=== PATIENT | female | born 1975 | race Caucasian/White ===

== ENCOUNTER 2022-04-27 20:17 | Emergency (ER) | payer OTHER, SELFPAY ==
[2022-04-27 20:22] VITALS: BP 162/75; PULSE 70; RESP 16; TEMP 36.1; O2SAT 99; BMI 21.9
--- NOTE | 2022-04-27 20:47 | CRLHL7_ITS ---
For Patients: As a result of the Cures Act, medical imaging exams and procedure reports are released immediately into your electronic medical record. You may view this report before your referring provider. If you have questions, please contact your health care provider. INDICATION: Injury. COMPARISON: None. TECHNIQUE: Left great toe 3 views. IMPRESSION: No acute fracture. Alignment is within normal limits. Joint spaces are maintained. Mild soft tissue swelling. Dictated by Francois Read MD @ 04/27/2022 9:31:21 PM (Electronically Signed)
--- NOTE | 2022-04-27 20:56 | ED.LOWEXIN ---
HPI - Extremity Injury (Lower) General Chief Complaint: Extremity Pain/Injury, Lower Stated Complaint: LEFT BIG TOE INJURY Time Seen by Provider: 04/27/22 20:25 History of Present Illness HPI Narrative: This 46-year-old female comes in with an injury to her left great toe. About 10 hours prior to arrival and ease all fell on her toe. She has swelling and bruising. She did not have any other injury. She is otherwise in good health. Related Data Home Medications Medication Instructions Recorded Confirmed No Known Home Medications 04/27/22 04/27/22 Allergies Allergy/AdvReac Type Severity Reaction Status Date / Time tree pollen Allergy Mild itchy eyes Uncoded 04/27/22 20:29 Review of Systems Status of ROS: Reports: 10 or more systems reviewed and unremarkable except as noted in History and below Narrative: Constitutional: No fevers, no weight gain or loss. Eyes: No discharge. No vision changes. HENT: No congestion, no sore throat, no ear pain. Cardiovascular: No chest pain, no palpitations. Respiratory: No shortness of breath, no wheezes, no cough. Gastrointestinal: No abdominal pain, no vomiting, no diarrhea. Genitourinary: No dysuria, no hematuria. Musculoskeletal: Left great toe injury as described above. Skin: No rashes, no pruritis. Neurological: No dizziness, weakness, sensory change, speech change. Endo/Heme/Allergies: No bruising or bleeding. No polydipsia. Pysch: no suicidality, no anxiety, no insomnia. All other systems reviewed and are negative. [facility] Medical History (Updated 04/27/22 @ 21:29 by Alex Marie MD) Inguinal hernia Social History Smoking Status: Never smoker Do you use any of these nicotine containing products: None Second hand tobacco smoke exposure: No How often do you have a drink containing alcohol: monthly or less How often do you have six or more drinks on one occasion: Never AUDIT-C Alcohol total score: 1 Non-prescribed substance use: denies use service: No Exam Narrative: Exam Narrative: Constitutional: Well-developed, well-nourished, no acute distress. HEENT: Normocephalic, atraumatic. Neck: Normal range of motion. Nontender. Supple. Heart: Intact distal pulses. Lungs: No chest discomfort. No wheezes, rhonchi, or rales. Abdomen: Nontender. Back: Normal range of motion. Extremities: Left great toe has bruising and swelling. There is no obvious deformity. Skin: Intact. No rash. Warm. No erythema or pallor. Neurologic: No altered sensation. No weakness. Alert and oriented. Psychiatric: No suicidality. No anxiety or depression. No insomnia. Nursing notes and vitals signs are reviewed. Const: Vital Signs, click to edit/add: Vital Signs - 24 hr 04/27/22 20:22 Temperature 96.9 F L Pulse Rate [Right Pulse Oximeter] 70 Respiratory Rate 16 Blood Pressure [Ri ght Upper Arm] 162/75 H Pulse Oximetry 99 Oxygen Delivery Me thod Room Air Course Vital Signs Vital signs: Initial Vital Signs Temperature 96.9 F L 04/27/22 20:22 Temperature Source Temporal Artery Scan 04/27/22 20:22 Pulse Rate 70 04/27/22 20:22 Respiratory Rate 16 04/27/22 20:22 Blood Pressure 162/75 H 04/27/22 20:22 Blood Pressure Mean 104 04/27/22 20:22 Blood Pressure Position Sitting 04/27/22 20:22 Pulse Oximetry 99 04/27/22 20:22 Oxygen Delivery Method 04/27/22 20:22 Vital Signs Temperature 96.9 F L 04/27/22 20:22 Pulse Rate 70 04/27/22 20:22 Respiratory Rate 16 04/27/22 20:22 Blood Pressure 162/75 H 04/27/22 20:22 Pulse Oximetry 99 04/27/22 20:22 Oxygen Delivery Method 04/27/22 20:22 Temperature 96.9 F L 04/27/22 20:22 Pulse Rate 70 04/27/22 20:22 Respiratory Rate 16 04/27/22 20:22 Blood Pressure 162/75 H 04/27/22 20:22 Pulse Oximetry 99 04/27/22 20:22 Oxygen Delivery Method 04/27/22 20:22 MDM - Extremity Injury (Lower) MDM Narrative Medical decision making narrative: This patient comes in with a contusion to her left great toe. She is ambulatory and did not have any other injury. X-ray imaging by my review shows no obvious dislocation or fracture. The patient is okay to increase activity as tolerated. She states that she will use [id number]-bqr-sxqhisg medicines as needed and directed for pain relief. Imaging Data XR L Great Toe: My impression: No obvious sign of fracture or dislocation by my review. Radiology report is pending. Discharge Plan Discharge Clinical Impression: Contusion of toe of left foot Patient Disposition: Home, Self-Care Condition: Stable Additional Instructions: Increase activity as tolerated. Use [id number]-[id number] medicines as needed and directed. Follow up with MD otherwise as needed. Prescriptions: No Action No Known Home Medications Follow Up/Referrals: Provider,Not a Local [Primary Care Provider] - Stand Alone Forms: [employer] Info Instructions
--- OUTSIDE RECORDS SUMMARY | 2022-04-27 21:10 | XMS_ITS | Clinical Summary ---
:1975 Author Organization [facility] Address [address] [place] [address] Care Team Providers Name Role Phone Unassigned, Provider Primary Care Provider Unavailable Source Comments You are receiving this document as you are listed as the primary care provider,follow-up provider, or the patient has been referred to you for consultation.This is in compliance with the Medicare and Medicaid EHR Incentive Program,which states Providers who transition their patient to another setting of careor provider of care or refers their patient to another provider of care shouldprovide summarycare record for each transition of care or referral. [facility] Allergies No known active allergies Medications Medication Sig Dispensed Refills Start Date End Date Status lisinopril (AKA Take one tablet by 0 Active ZESTRIL) 10 MG tablet mouth every day. mefloquine (LARIAM) Take 1 tab weekly 8 Tab 0 02/02/2017 Active 250 MG starting 2 wks tabletIndications: before malarial Counseling for travel mosquito exposure, wkly while there, and continue for 4 weeks after azithromycin Take 1 tab daily 3 Tab 0 01/31/2017 Active (ZITHROMAX) 500 MG for 3 days as tabletIndications: needed for severe Counseling for travel travelers diarrhea. Active Problems Problem Noted Date Plantar warts 02/25/2012 Immunizations Name Administration Dates Next Due [id number] 07/28/2009 HepA Adult (19+ yrs) 01/09/2016, 07/04/2015 IPV (Polio) 07/05/2016 Influenza IIV4 (Quadrivalent) 0.5mL 04/30/2016, 05/15/2014 (62619) Influenza, Unspecified Formulation 07/04/2015, 05/09/2014, 1 MMR 02/07/1992 Tdap 09/17/2011 Typhoid (Typhim Vi, IM) 01/31/2017 YF (Yellow Fever) 01/31/2017 Family History Medical History Relation Name Comments Glaucoma Negative Family History Macular Degeneration Negative Family History Retinal Detachment Negative Family History Social History Tobacco Use Types Packs/Day Years Used Date Smoking Tobacco: Never Smokeless Tobacco: Never Sex Assigned at Date Recorded Not on file Last Filed Vital Signs Vital Sign Reading Time Taken Comments Blood Pressure 110/76 06/16/2012 1:25 PM PETROPHYSICAL ENGINEER Pulse 48 06/16/2012 1:25 PM PETROPHYSICAL ENGINEER Temperature 36.8 ??C (98.2 ??F) 12/22/2011 8:02 AM CDT Respiratory Rate 16 05/05/2012 11:14 AM CDT Oxygen Saturation - - Inhaled Oxygen Concentration - - Weight 63.6 kg (140 lb 3.2 oz) 06/16/2012 1:25 PM PETROPHYSICAL ENGINEER Height 170.2 cm (5' 7) 06/16/2012 1:25 PM PETROPHYSICAL ENGINEER Body Mass Index 21.96 06/16/2012 1:25 PM PETROPHYSICAL ENGINEER Plan of Treatment Health Maintenance Due Date Last Done Comments Cervical Cancer Screening 1975 Due Colon Cancer Screening Plan 1975 Due Hep C Screening (Preventive 1975 Services) HepB (1) 1975 COVID-19 Vaccine (#1) 03/27/1974 HIV Screening (Preventive 1989 Services) Adult Preventive Visit 1991 Cholesterol 2018 DTaP/Tdap/Td (2 - Tdap) 09/17/2021 09/17/2011 Influenza (#1) 2022 04/30/2016, 07/04/2015, 05/15/2014, Additional history exists Zoster/Shingles (1 of 2) 2023 HepA Aged Out 01/09/2016, 07/04/2015 No longer eligible based on patient 's age to complete this topic IPV (Polio) Aged Out 07/05/2016 No longer eligib le based on patient 's age to complete this topic Hib Aged Out No longer eligib le based on patient 's age to complete this topic MCV4 Aged Out No longer eligib le based on patient 's age to complete this topic Pneumococcal Aged Out No longer eligib le based on patient 's age to complete this topic [phone] [phone] [place] ([place]) [phone] Tequila Blackburn Personal/Family Self 1975 [phone] [phone] [place], [place] ([place]) [phone] Tequila Blackburn Personal/Family Self 1975 [phone] [phone] [place], [place] ([place]) [address] Care Teams Perfect Binder Operator Relationship Specialty Start Date End Date Unassigned, Provider PCP - General 05/04/[address] [place] [id number]
--- OUTSIDE RECORDS SUMMARY | 2022-04-27 21:10 | XMS_ITS | Encounter Summary ---
:1975 Author Organization [facility] Address [address] [address] Care Team Providers Name Role Phone Unassigned, Provider Primary Care Provider Unavailable Encounter Details Date Type Department Care Team Description 04/11/2008 Office Visit [facility] [place] [address] [address] [place] [address] [place] [address] Social History Tobacco Use Types Packs/Day Years Used Date Smoking Tobacco: Never Assessed Sex Assigned at Date Recorded Not on file documented as of this encounter Last Filed Vital Signs Vital Sign Reading Time Taken Comments Blood Pressure 126/81 04/11/2008 8:11 AM CDT Pulse 62 04/11/2008 8:11 AM CDT Temperature 36.2 ??C (97.2 ??F) 04/11/2008 8:11 AM CDT C: 36 .2 C Respiratory Rate 16 04/11/2008 8:11 AM CDT Oxygen Saturation - - Inhaled Oxygen Concentration - - Weight - - Height - - Body Mass Index - - documented in this encounter Progress Notes Ranjeet Jay MD - 04/11/2008 12:01 AM CDT Progress Notes signed by Ranjeet Jay MD at 05/13/08 1629 Author: Ranjeet Jay MD Service: (none) Author Type: Physician Filed: 11/21/10 0648 Note Time: 04/11/08 0001 Status: Signed Truck Driver Instructor: Ranjeet Jay MD (Physician) NAME: CHEYENNE RASHID MR#: [id number] ACCT: [id number] VISIT: [id number] DICTATING CLINICIAN: RANJEET JAY MD CONFIRM #: [id number] LOC: 520 CLINIC PROGRESS NOTE DATE OF VISIT: 04/11/2008 SUBJECTIVE: Patient is here with her right upper eyelid being somewhat swollen and red and somewhat sore. She said she has also, secondly, had some mattering occasionally in the inner aspect of the eye. about a week ago, she noticed the soreness on the inner upper lip, and it seems to be just slowly getting a little larger. Has has been no trauma to the area and vision has been fine. She has not had headache or sinus drainage or fever, and the rest of the complete systems review is negative. 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 She does wear contacts, but she has those out now, and is just wearing her glasses. ADR/ALLERGIES: SHE HAS NO ALLERGIES TO MEDICINES. She does take the minipill and methyldopa and is nursing a 4-month-old and denies possibility of , and she states her tetanus is up to date. She describes the symptoms as mild and has not tried anything yet. OBJECTIVE: VS: T: 97.1. P: 61. R: 16. She appears alert and oriented x3. On exam, she has a small area of redness and slight swelling just on the inner aspect of the right upper eyelid, and it extends perhaps about a 0.75 cm from the medial most part of the lid. Everting the lid, though, it looks like she may have had a stye previously, but there is no head on it at this time, and there also is some mild conjunctivitis involving the inner parts of the upper and lower lids. The rest of the right eye looks fine as does the left, and sinuses are nontender. Throat looks okay. Glands are not swollen. ASSESSMENT: 1. Suspected stye and now #2. 2. Very mild cellulitis involving the upper eyelid, and then #3. 3. Some conjunctivitis as well. PLAN: She wishes to use drops instead of ointments and will go with warm packs and Garamycin drops. Will also start Augmentin 875 b.i.d. x10 days and warm pack the area 3 times a day and should use backup method for control while on the antibiotics. She is warned about the dangers of periorbital cellulitis and needs to follow up which she agrees to right away. If there is any worsening or new symptoms or if this is not markedly improved in 2 days, recheck, or if not 100% in 7-10 days or recurrent to recheck. She will also keep her contacts out while she is on the eye drops. [id number] C: 04/11/08 13:51 CONFIRM #: [id number] documented in this encounter Plan of Treatment Not on filedocumented as of this encounter Visit Diagnoses Not on filedocumented in this encounter Care Teams Title Lawyer Relationship Specialty Start Date End Date Unassigned, Provider PCP - General 05/04/[address] [place] [id number] documented as of this encounter
--- OUTSIDE RECORDS SUMMARY | 2022-04-27 21:10 | XMS_ITS | Encounter Summary ---
:1975 Author Organization [facility] Address [address] [place] [address] Care Team Providers Name Role Phone Unassigned, Provider Primary Care Provider Unavailable Reason for Visit Reason Comments AMELIA MORALES Encounter Details Date Type Department Care Team Description 10/08/2011 Office Visit [facility] Jung Lujan Vir al warts, Medicine MD unspecified (Primary [address] Dx) [place] [address] [place], [place] [phone] (Wo rk) Social History Tobacco Use Types Packs/Day Years Used Date Smoking Tobacco: Never Sex Assigned at Date Recorded Not on file documented as of this encounter Last Filed Vital Signs Vital Sign Reading Time Taken Comments Blood Pressure - - Pulse - - Temperature 35.7 ??C (96.3 ??F) 10/08/2011 8:04 AM VICE PRESIDENT AND PORTFOLIO MANAGER Respiratory Rate 16 10/08/2011 8:04 AM VICE PRESIDENT AND PORTFOLIO MANAGER Oxygen Saturation - - Inhaled Oxygen Concentration - - Weight 62.1 kg (137 lb) 10/08/2011 8:04 AM VICE PRESIDENT AND PORTFOLIO MANAGER Height - - Body Mass Index 30.17 06/29/2005 11:42 AM VICE PRESIDENT AND PORTFOLIO MANAGER documented in this encounter Progress Notes Jung Lujan MD - 10/08/2011 8:32 AM CST CLINIC PROCEDURE REPORT DATE OF VISIT: 10/08/2011 : 1975 [place] is a 36-year-old female here today for repeat treatment of warts.This is her 3rd cryotherapy. She had good response without significant pain last time. EXAM: This is a middle-aged female, no acute distress. Weight is 137 Examination of her right foot reveals lesions covering the base of her right 2nd toe essentially with smaller lesions on her great toe. She has approximately 9 in total ranging in size from 1 mm to approximately 8 mm, most of them on her 2nd toe. 2 smaller lesions on great toe. ASSESSMENT: Plantar warts. PLAN: I pared the lesions down with a 15-blade. I then did 3 cycles of cryotherapy. She is going to return in 3 weeks for repeat treatment. If she is not responding within about 3-4 cycles, we talked about the possibility of intralesional injection of Vicenta antigen. We will see how she does and address that going forward. documented in this encounter Plan of Treatment Not on filedocumented as of this encounter Visit Diagnoses Diagnosis Viral warts, unspecified - Primary documented in this encounter Care Teams Musculoskeletal Physiotherapist Relationship Specialty Start Date End Date Unassigned, Provider PCP - General 05/04/[address] [place] [id number] documented as of this encounter
--- OUTSIDE RECORDS SUMMARY | 2022-04-27 21:10 | XMS_ITS | Encounter Summary ---
:1975 Author [facility] Address [address] [facility] [place] [address] Care Team Providers Name Role Phone Unassigned, Provider Primary Care Provider Unavailable Encounter Details Date Type Department Care Team Description 04/11/2008 PN Conversion Only [address] [address] [place] [address] Social History Tobacco Use Types Packs/Day Years Used Date Smoking Tobacco: Never Assessed Sex Assigned at Date Recorded Not on file documented as of this encounter Plan of Treatment Not on filedocumented as of this encounter Visit Diagnoses Not on filedocumented in this encounter Care Teams Jd Edwards Consultant Relationship Specialty Start Date End Date Unassigned, Provider PCP - General 05/04/00 [address] [place] [address] documented as of this encounter
--- OUTSIDE RECORDS SUMMARY | 2022-04-27 21:10 | XMS_ITS | Encounter Summary ---
:1975 Author Organization [facility] Address [address] [place] [address] Care Team Providers Name Role Phone Unassigned, Provider Primary Care Provider Unavailable Reason for Visit Reason Comments AMELIA MORALES Encounter Details Date Type Department Care Team Description 06/16/2012 [facility] Grazyna Cochran Planta r warts Medicine PA-C (Primary Dx) [address] [facility] [address] [place] [address] [place] [address] [phone] (Wo rk) Social History Tobacco Use Types Packs/Day Years Used Date Smoking Tobacco: Never Sex Assigned at Date Recorded Not on file documented as of this encounter Last Filed Vital Signs Vital Sign Reading Time Taken Comments Blood Pressure 110/76 06/16/2012 1:25 PM CONSTRUCTION DIRECTOR Pulse 48 06/16/2012 1:25 PM CONSTRUCTION DIRECTOR Temperature - - Respiratory Rate - - Oxygen Saturation - - Inhaled Oxygen Concentration - - Weight 63.6 kg (140 lb 3.2 oz) 06/16/2012 1:25 PM CONSTRUCTION DIRECTOR Height 170.2 cm (5' 7) 06/16/2012 1:25 PM CONSTRUCTION DIRECTOR Body Mass Index 21.96 06/16/2012 1:25 PM CONSTRUCTION DIRECTOR documented in this encounter Progress Notes Grazyna Cochran PA-C - 06/16/2012 3:35 PM CST Procedure Note: Skin Lesion Destruction CHIEF COMPLAINT: Skin wart(s) Allergies: Patient's allergies were reviewed and updated today in the Allergy section of the electronic medical record. Vital Signs: Vital Signs taken today were reviewed on the flowsheet in Electronic Medical Record. Location #1: Plantar right first and second toes History: Lesion has been Description: verrucous papule consistent with a benign wart. Number of Lesions Treated @ This Site: 3 Size of largest lesion: 3 mm. ASSESSMENT: Plantar Wart(s) (078.19) PROCEDURE NOTE: Discussed risk of pain, blistering, infection, scarring, hypopigmentation, hyperpigmentation, and recurrence or need for retreatment. Benefits of treatment and alternative treatments were also discussed. Clean technique was used throughout the procedure. Liquid nitrogen applied to freeze the entire lesion(s) including a narrow margin of surrounding skin. After thawing, freezing was repeated x 1. PLAN: Patient will use OTC remedies and return if further treatment desired. Signs of infection (spreading erythema, increasing pain, purulent discharge) were discussed. No swimming, keep lesion clean and dry except for showering until crusted over, and any weeping has subsided. Use OTC pain medications PRN per package instructions. Patient was given discharge instructions and was discharged in stable condition. Return to clinic in 3 weeks, sooner PRN problems or concerns. *SH~PC~SLD ~Shorthand Note completed on: 06/16/2012 3:35 PM documented in this encounter Plan of Treatment Not on filedocumented as of this encounter Visit Diagnoses Diagnosis Plantar warts - Primary Plantar wart documented in this encounter Care Teams Concrete Mixing Plant Superintendent Relationship Specialty Start Date End Date Unassigned, Provider PCP - General 05/04/[address] [place] [phone] documented as of this encounter
--- OUTSIDE RECORDS SUMMARY | 2022-04-27 21:10 | XMS_ITS | Encounter Summary ---
:1975 Author Organization [facility] Address [address] [place] [address] Care Team Providers Name Role Phone Unassigned, Provider Primary Care Provider Unavailable Reason for Visit Reason Comments EYE IRRITATION Pt states she was seen in [facility] 2 days ago. Pt states she was told she has a scratch a t 12 o'clock in the left eye. Pt was given Polymyxin B Sulfate & trimet hoprim drop, pt states her eyes got more red, itchy, burning feel and has not used the drops for 1 day. pt states it still feel like so mething is in the left eye, sensativity to light, red and puffy lids. N o vision changes. Encounter Details Date Type Department Care Team Description 03/15/2011 Office Visit [facility] Romel Yepez, Unspecified corneal [address] OD ulcer (Primary Dx) [place], [place] [address] Social History Tobacco Use Types Packs/Day Years Used Date Smoking Tobacco: Never Sex Assigned at Date Recorded Not on file documented as of this encounter Progress Notes Romel Yepez, OD - 03/15/2011 12:18 PM CDT Corneal ulcer OS P: ocuflox ami 2 hrs today, then QID for 1 week. No CL wear. RTC if no continued improvement. documented in this encounter Plan of Treatment Not on filedocumented as of this encounter Visit Diagnoses Diagnosis Corneal ulcer, unspecified - Primary documented in this encounter Care Teams Side Boss Relationship Specialty Start Date End Date Unassigned, Provider PCP - General 05/04/00 [address] [place] [address] documented as of this encounter
--- OUTSIDE RECORDS SUMMARY | 2022-04-27 21:10 | XMS_ITS | Encounter Summary ---
:1975 Author Organization [facility] Address [address] [place] [address] Care Team Providers Name Role Phone Unassigned, Provider Primary Care Provider Unavailable Encounter Details Date Type Department Care Team Description 11/29/2005 Office Visit [facility] [place] [address] [place] [address] [place], [place] [phone] (Wo rk) Social History Tobacco Use Types Packs/Day Years Used Date Smoking Tobacco: Never Assessed Sex Assigned at Date Recorded Not on file documented as of this encounter Last Filed Vital Signs Vital Sign Reading Time Taken Comments Blood Pressure 120/90 11/29/2005 12:14 PM CDT Pulse 60 11/29/2005 12:14 PM CDT Temperature - - Respiratory Rate - - Oxygen Saturation - - Inhaled Oxygen Concentration - - Weight 59.4 kg (131 lb) 11/29/2005 12:14 PM CDT C: 59.4 kg Height - - Body Mass Index 28.85 06/29/2005 11:42 AM OUTSOLE SCHEDULER documented in this encounter Progress Notes Sherry Joyce MD - 11/29/2005 12:01 AM CDT Progress Notes signed by Sherry Joyce MD at 12/27/052000 Author: Sherry Joyce MD Service: (none) Author Type: Physician Filed: 11/20/10 1145 Note Time: 11/29/05 0001 Status: Signed Hot Blast Worker: Sherry Joyce MD (Physician) NAME: CHEYENNE RASHID MR: [id number] ACCT: [id number] VISIT: [id number] DICTATING CLINICIAN: SHERRY JOYCE MD JOB: [id number] CLINIC PROGRESS NOTE DATE OF VISIT: 11/29/2005 SUBJECTIVE: : 1975. Chief Complaint: Blood pressure check and left knee pain. HISTORY OF PRESENTING ILLNESS: Cheyenne is a 30-year-old lady who today came in to check on the blood pressure reading. According to the patient, she saw another provider two months ago, and at that point, her blood pressure was a little elevated. It was basically the urgent care visit at [facility] (formerly [facility]3] where the blood pressure was so elevated that she was put on atenolol. She did take the medication for 1 to 1-1/2 months, and at that point when she checked her blood pressure, that was normal limit. Then she stopped by herself, and according to the patient, when she occasionally checks her blood pressure, the systolic is usually between 140-145 and diastolic in 90s. Otherwise, she denies any chest pain, no breathing difficulty, no headache, no leg swelling. She also complained of left knee pain that has been going on for the last two weeks. Otherwise, according to the patient, she is a very active runner, and she noticed the pain especially when going up and down the stairs. Otherwise, it can be at rest also. Otherwise, patient denies any trauma. PAST MEDICAL HISTORY: None. MEDICATIONS: None. ADR/ALLERGIES: NKDA. OBJECTIVE: VS: BP: 120/90. P: 60. Wt: 131 lb. GENERAL: Patient is comfortable, no acute distress. CARDIOVASCULAR: S1, S2 regular. LUNGS: Clear to auscultation bilaterally. ABDOMEN: Positive bowel sounds. MUSCULOSKELETAL: Examination of the left knee: Patient is tender on the lateral upper side of the patella and also on the top of patella and onto the tendon insertion. Otherwise, range of motion is fine with good flexion, extension, internal/external rotation. ASSESSMENT: 1. Increased blood pressure reading. At this point, patient has been told to continue monitoring the blood pressure. Patient will continue to monitor. If continued to have increased blood pressure, recommend to follow up. Otherwise, recommend to follow up in three to four months. 2. Left knee pain, probably secondary to patellofemoral arthralgia. At this point, patient has been told to use Tylenol, ibuprofen as needed, rest, ice, and avoid the active running, which the patient agreed. Recommend to follow up if her symptoms are not resolved. 3. Medication refill has been done. PLAN: See assessment. SS:[id number] C: 12/01/05 20:19 DOCUMENT: [id number] documented in this encounter Plan of Treatment Not on filedocumented as of this encounter Visit Diagnoses Not on filedocumented in this encounter Care Teams Convertible Sofa Bedspring Tester Relationship Specialty Start Date End Date Unassigned, Provider PCP - General 05/04/[address] [place] [address] documented as of this encounter
--- OUTSIDE RECORDS SUMMARY | 2022-04-27 21:10 | XMS_ITS | Encounter Summary ---
:1975 Author Organization [facility] Address [address] [place] [address] Care Team Providers Name Role Phone Unassigned, Provider Primary Care Provider Unavailable Reason for Visit Reason Comments AMELIA MORALES Encounter Details Date Type Department Care Team Description 05/05/2012 Office Visit [facility] Grazyna Cochran Planta r warts Medicine FARAZ (Primary Dx) [address] [facility] [address] [place] [address] [place] [address] [phone] (Wo rk) Social History Tobacco Use Types Packs/Day Years Used Date Smoking Tobacco: Never Sex Assigned at Date Recorded Not on file documented as of this encounter Last Filed Vital Signs Vital Sign Reading Time Taken Comments Blood Pressure 102/60 05/05/2012 11:14 AM CDT Pulse 64 05/05/2012 11:14 AM CDT Temperature - - Respiratory Rate 16 05/05/2012 11:14 AM CDT Oxygen Saturation - - Inhaled Oxygen Concentration - - Weight - - Height - - Body Mass Index - - documented in this encounter Progress Notes Grazyna Cochran PA-C - 05/05/2012 11:29 AM CDT Procedure Note: Skin Lesion Destruction CHIEF COMPLAINT: Skin wart(s) Allergies: Patient's allergies were reviewed and updated today in the Allergy section of the electronic medical record. Vital Signs: Vital Signs taken today were reviewed on the flowsheet in Electronic Medical Record. Location #1: plantar right great toe second toe History: Lesion has been Description: verrucous papule consistent with a benign wart. Number of Lesions Treated @ This Site: 3 Size of largest lesion: 1 mm. ASSESSMENT: Plantar Wart(s) (078.19) PROCEDURE NOTE: Discussed risk of pain, blistering, infection, scarring, hypopigmentation, hyperpigmentation, and recurrence or need for retreatment. Benefits of treatment and alternative treatments were also discussed. Clean technique was used throughout the procedure. Liquid nitrogen applied to freeze the entire lesion(s) including a narrow margin of surrounding skin. After thawing, freezing was repeated x 1. Band-Aid applied to lesion(s). PLAN: Patient will use OTC remedies and [...] or concerns. *SH~PC~SLD ~Shorthand Note completed on: 05/05/2012 11:29 AM documented in this encounter Plan of Treatment Not on filedocumented as of this encounter Visit Diagnoses Diagnosis Plantar warts - Primary Plantar wart documented in this encounter Care Teams Surveillance Systems Engineer Relationship Specialty Start Date End Date Unassigned, Provider PCP - General 05/04/[address] [place] [address] documented as of this encounter
--- OUTSIDE RECORDS SUMMARY | 2022-04-27 21:10 | XMS_ITS | Encounter Summary ---
:1975 Author Organization [facility] Address [address] [place] [address] Care Team Providers Name Role Phone Unassigned, Provider Primary Care Provider Unavailable Reason for Visit Reason Comments AMELIA MORALES Encounter Details Date Type Department Care Team Description 03/20/2012 Office Visit [facility] Grazyna Cochran Planta r warts Medicine FARAZ (Primary Dx) [address] [facility] [address] [place] [address] [place] [address] [phone] (Wo rk) Social History Tobacco Use Types Packs/Day Years Used Date Smoking Tobacco: Never Sex Assigned at Date Recorded Not on file documented as of this encounter Last Filed Vital Signs Vital Sign Reading Time Taken Comments Blood Pressure 110/60 03/20/2012 4:15 PM CDT Pulse 72 03/20/2012 4:15 PM CDT Temperature - - Respiratory Rate 14 03/20/2012 4:15 PM CDT Oxygen Saturation - - Inhaled Oxygen Concentration - - Weight - - Height - - Body Mass Index - - documented in this encounter Progress Notes Grazyna Cochran PA-C - 03/20/2012 4:42 PM CDT Subjective: Cheyenne Blackburn is a 36 y.o. female who is in for follow up on plantar warts. No current outpatient prescriptions on file prior to encounter. No Known Allergies Review of Systems Pertinent items are noted in HPI. Objective: Physical Exam Skin: 4 round, verrucous papule, papules on left great and second toes. Assessment: plantar wart. Plan: 1. 0.1 ml of mckenna solution was injected subcutaneously directly into the wart tissue on the second toe. Adequate blanching observed. The other warts were frozen with liquid nitrogen in a freeze- thaw-refreeze times two. 2. Verbal patient instruction given. 3. Follow up in 3 weeks documented in this encounter Plan of Treatment Not on filedocumented as of this encounter Visit Diagnoses Diagnosis Plantar warts - Primary Plantar wart documented in this encounter Care Teams Water Quality Tester Relationship Specialty Start Date End Date Unassigned, Provider PCP - General 05/04/[address] [place] [phone] documented as of this encounter
--- OUTSIDE RECORDS SUMMARY | 2022-04-27 21:10 | XMS_ITS | Encounter Summary ---
:1975 Author Organization [facility] Address [address] [place] [address] Care Team Providers Name Role Phone Unassigned, Provider Primary Care Provider Unavailable Reason for Visit Reason Comments AMELIA MORALES Encounter Details Date Type Department Care Team Description 11/23/2011 Office Visit [facility] Jung Lujan Pla ntar wart (Primary Medicine Dx) [address] [place] [address] [place], [place] [phone] (Wo rk) Social History Tobacco Use Types Packs/Day Years Used Date Smoking Tobacco: Never Sex Assigned at Date Recorded Not on file documented as of this encounter Last Filed Vital Signs Vital Sign Reading Time Taken Comments Blood Pressure 120/80 11/23/2011 11:38 AM CDT Pulse 64 11/23/2011 11:38 AM CDT Temperature - - Respiratory Rate - - Oxygen Saturation - - Inhaled Oxygen Concentration - - Weight 63.5 kg (140 lb) 11/23/2011 11:38 AM CDT Height - - Body Mass Index 30.83 06/29/2005 11:42 AM THROUGH OPERATOR documented in this encounter Progress Notes Jung Lujan MD - 11/23/2011 12:21 PM CDT Procedures signed by Jung Lujan MD at 11/23/11 8563 Author: Jung Lujan MD Service: (none) Author Type: Physician Filed: 11/23/11 7399 Note Time: 11/23/11 1221 Status: Signed Shank Paperer: Jung Lujan MD (Physician) NAME: CHEYENNE RASHID MR#: [id number] CSN: [id number] AUTHENTICATING CLINICIAN: Jung Lujan MD CONFIRM #: [id number] LOC: 502 CLINIC PROCEDURE REPORT DATE OF VISIT: 11/23/2011 : 1975 Cheyenne is a 36-year-old female here today for followup on warts. We have been trying to treat her warts with cryotherapy for the last several months. She has had cryotherapy on 4 previous occasions and she comes in today for repeat treatment. We have discussed alternative potential treatments and she believes that she has not really had much of a response to her last cryo despite the fact that we added Canthacur to it, as well. PHYSICAL EXAM: This is a middle-aged female in no acute distress. Weight is 140, blood pressure 120/80, pulse 64. Examination reveals multiple verrucous lesions on the first and second toe of her right foot. She has approximately 7-8 lesions on her second toe with the largest being about 1 cm across. She has 2-4 lesions on her great toe, the largest being about 3 mm across. There is really no improvement from her previous treatment. ASSESSMENT: Verruca vulgaris. PLAN: Cheyenne and I discussed her circumstances. She is a little frustrated with the lack of progress and would like to try alternative therapies. We did discuss Vicenta antigen injection and after discussion of risks and benefits, I obtained verbal informed consent and I then cleansed the skin with alcohol. I then injected a total of 0.3 mL of Vicenta antigen into the intradermal layer beneath the largest of the warts in 3 different locations. She tolerated the procedure well. She will return in 1 month for her second treatment. I went over what to watch for in terms of adverse responses and if she has any of those, she will call or return. Otherwise, she will proceed with followup as discussed. DJS:KILO C: CONFIRM #: [id number] documented in this encounter Plan of Treatment Not on filedocumented as of this encounter Visit Diagnoses Diagnosis Plantar wart - Primary documented in this encounter Care Teams Cane Loader Relationship Specialty Start Date End Date Unassigned, Provider PCP - General 05/04/[address] [place] [address] documented as of this encounter
--- OUTSIDE RECORDS SUMMARY | 2022-04-27 21:10 | XMS_ITS | Encounter Summary ---
:1975 Author Organization [facility] Address [address] [place] [address] Care Team Providers Name Role Phone Unassigned, Provider Primary Care Provider Unavailable Reason for Visit Reason Comments AMELIA MORALES Encounter Details Date Type Department Care Team Description 09/15/2011 Office Visit [facility] Jung Lujan Vir al warts, Medicine MD unspecified (Primary [address] [place]x) [place] [address] [place], [place] [phone] (Wo rk) Social History Tobacco Use Types Packs/Day Years Used Date Smoking Tobacco: Never Sex Assigned at Date Recorded Not on file documented as of this encounter Last Filed Vital Signs Vital Sign Reading Time Taken Comments Blood Pressure 100/60 09/15/2011 8:30 AM UNDERGROUND MINING SECTION FOREMAN Pulse 80 09/15/2011 8:30 AM UNDERGROUND MINING SECTION FOREMAN Temperature - - Respiratory Rate - - Oxygen Saturation - - Inhaled Oxygen Concentration - - Weight 62.1 kg (137 lb) 09/15/2011 8:30 AM UNDERGROUND MINING SECTION FOREMAN Height - - Body Mass Index 30.17 06/29/2005 11:42 AM UNDERGROUND MINING SECTION FOREMAN documented in this encounter Progress Notes Jung Lujan MD - 09/15/2011 1:11 PM CST Procedures signed by Jung Lujan MD at 09/15/11 7313 Author: Jung Lujan MD Service: (none) Author Type: Physician Filed: 09/15/11 1428 Note Time: 09/15/11 1311 Status: Signed Telephony Engineer: Jung Lujan MD (Physician) NAME: CHEYENNE RASHID MR#: [id number] CSN: [id number] AUTHENTICATING CLINICIAN: Jung Lujan MD CONFIRM #: [id number] LOC: 502 CLINIC PROCEDURE REPORT DATE OF VISIT: 09/15/2011 : 1975 Cheyenne is a 35-year-old female here today for repeat treatment of warts. I saw her for the 1st time with her warts 3 weeks ago and we started paring and cryotherapy. She is here for her 2nd treatment. She had good response without significant pain last time. EXAM: This is a middle-aged female, no acute distress. Weight is 137, blood pressure 100/60, pulse of 80. Examination of her right foot reveals lesions covering her 2nd toe essentially with smaller lesions on her great toe. She has approximately 9 in total ranging in size from 1 mm to approximately 8 mm, most of them on her 2nd toe. ASSESSMENT: Plantar warts. PLAN: I pared the lesions down with a 15-blade. I then did 3 cycles of cryotherapy. She is going to return in 3 weeks for repeat treatment. If she is not responding within about 3-4 cycles, we talked about the possibility of intralesional injection of Vicenta antigen. We will see how she does and address that going forward. DJS:KILO C: CONFIRM #: [id number] RGROUND MINING SECTION FOREMAN documented in this encounter Plan of Treatment Not on filedocumented as of this encounter Visit Diagnoses Diagnosis Viral warts, unspecified - Primary documented in this encounter Care Teams Locksmith Apprentice Relationship Specialty Start Date End Date Unassigned, Provider PCP - General 05/04/[address] [place] [phone] documented as of this encounter
--- OUTSIDE RECORDS SUMMARY | 2022-04-27 21:10 | XMS_ITS | Encounter Summary ---
:1975 Author Organization [facility] Address [address] [address] Care Team Providers Name Role Phone Unassigned, Provider Primary Care Provider Unavailable Encounter Details Date Type Department Care Team Description 02/04/2006 Office Visit [facility] [place] [address] [address] [facility] [address] [place] [address] [place], [place] [phone] (Wo rk) Social History Tobacco Use Types Packs/Day Years Used Date Smoking Tobacco: Never Assessed Sex Assigned at Date Recorded Not on file documented as of this encounter Last Filed Vital Signs Vital Sign Reading Time Taken Comments Blood Pressure 140/90 02/04/2006 8:05 AM CDT Pulse 60 02/04/2006 8:05 AM CDT Temperature 37.1 ??C (98.8 ??F) 02/04/2006 8:05 AM CDT C: 37 .1 C Respiratory Rate 20 02/04/2006 8:05 AM CDT Oxygen Saturation - - Inhaled Oxygen Concentration - - Weight - - Height - - Body Mass Index - - documented in this encounter Progress Notes Hanh Galan MD - 02/04/2006 12:01 AM CDT Progress Notes signed by Hanh Galan MD at 02/04/06 3752 Author: Hanh Galan MD Service: (none) Author Type: Physician Filed: 11/20/10 1303 Note Time: 02/04/06 0001 Status: Signed Artillery Meteorological Man: Hanh Galan MD (Physician) NAME: CHEYENNE RASHID MR: [id number] ACCT: VISIT: [id number] DICTATING CLINICIAN: Hanh Galan MD JOB: [id number] CLINIC PROGRESS NOTE DATE OF VISIT: 02/04/2006 SUBJECTIVE: She presents to the clinic with a chief complaint of a sore throat for the past 2 days. She has had subjective low grade fevers and myalgias. No dysphagia, stuffy nose, runny nose, ear pain, rash, abdominal pain, diarrhea. She has not taken any medications for this. She is her 1-year-old child. Son recently had symptoms consistent with hand, foot and mouth disease. She has not noticed any rash on herself. She has also had some headache and nausea. No cough. PAST MEDICAL HISTORY: None. MEDICATIONS: Oral control pills. ADR/ALLERGIES: NO KNOWN DRUG ALLERGIES. OBJECTIVE: VS: BP: 140/90. T: 98.8. P: 60. R: 20. She is in no distress. She does not appear systemically ill. She is alert and oriented. Tympanic membranes normal. Ears normal. Nares show some thin mucoid discharge and some erythematous turbinates. Pharynx does show bilateral tonsillar exudate with mild tonsillar enlargement and some pharyngeal erythema. No trismus, asymmetry or uvular deviation. No neck lymphadenopathy. LUNGS: Clear to auscultation with good air flow. HEART: Regular rate and rhythm. ABDOMEN: Soft, nontender with normal active bowel sounds. No rash noted on the palms. Rapid Strep test is negative. ASSESSMENT: Acute tonsillitis. PLAN: Discussed the diagnosis with her. Discussed options of waiting for Strep culture and treating if positive versus treating now and discontinuing antibiotics if negative. After discussion, she would like to hold off on treatment. If the Strep culture is positive, we will treat accordingly. Discussed symptomatic treatment with Tylenol and/or lozenges and salt water gargles. Discussed if she develops actual inability to swallow, she should go immediately to ER or return here. She verbalized understanding and agreement with this. JLP:[id number] C: 02/04/06 15:04 DOCUMENT: [id number] documented in this encounter Plan of Treatment Not on filedocumented as of this encounter Visit Diagnoses Not on filedocumented in this encounter Care Teams Field Examiner Relationship Specialty Start Date End Date Unassigned, Provider PCP - General 05/04/[address] [place] [address] documented as of this encounter
--- OUTSIDE RECORDS SUMMARY | 2022-04-27 21:10 | XMS_ITS | Encounter Summary ---
:1975 Author Organization [facility] Address [address] [place] [address] Care Team Providers Name Role Phone Unassigned, Provider Primary Care Provider Unavailable Encounter Details Date Type Department Care Team Description 02/04/2006 PN Conversion Only MCCAMEY Hanh Lisa, [address] [facility] [place] [address] [address] [place] [address] (Wo rk) Social History Tobacco Use Types Packs/Day Years Used Date Smoking Tobacco: Never Assessed Sex Assigned at Date Recorded Not on file documented as of this encounter Plan of Treatment Not on filedocumented as of this encounter Procedures Procedure Name Priority Date/Time Associated Diagnosis Comme nts STREP GROUP A Routine 02/04/2006 9:55 AM Results for this ANTIGEN TEST CDT procedure are i n the results section. BETA STREP FOLLOWUP Routine 02/04/2006 9:55 AM Re sults for this CDT procedure are i n the results section. documented in this encounter Results Strep Group A Antigen Test (02/04/2006 9:55 AM CDT) Analysis Performed At Patho logist Time Signature Strep Group A Negative Negative HP CONVERSION Antigen Test Comment: Culture to follow. Specimen (Source) Anatomical Collection Method Collection Time Re ceived Time Location / / Volume Laterality 02/04/2006 9:55 AM CDT Hanh Galan MD LAB_1 Performing Organization Address City/State/ZIP Code Phon e Number HP CONVERSION Beta Strep Followup (02/04/2006 9:55 AM CDT) P athologist Signature Strep Screen SEE TEXT HP CONVERSION Comment: Patient: CHEYENNE RASHID Rapid Strep Follow up Culture @ ? Collected: ??[id number] ??[id number] Source: Throat ?Processed: ??[id number] ??[id number] ? 1V Final Report ------ ?[id number] ??[id number] No beta hemolytic Strep group A isolated . @ = Rapid F/U Cult Performed at ??[address] [place], [place] ?[address] Specimen (Source) Anatomical Collection Method Collection Time Re ceived Time Location / / Volume Laterality 02/04/2006 9:55 AM CDT Hanh Galan MD LAB_1 Performing Organization Address City/State/ZIP Code Phon e Number HP CONVERSION documented in this encounter Visit Diagnoses Not on filedocumented in this encounter Care Teams Privacy Analyst Relationship Specialty Start Date End Date Unassigned, Provider PCP - General 05/04/00 [address] [place] [address] documented as of this encounter
--- OUTSIDE RECORDS SUMMARY | 2022-04-27 21:10 | XMS_ITS | Encounter Summary ---
:1975 Author Organization [email or web address] Address [address] [place] [address] Care Team Providers Name Role Phone Unassigned, Provider Primary Care Provider Unavailable Reason for Visit Reason Comments Routine Eye Exam Office visit with Dr. St 03/15/11; RASHID 2 years ago; pt states had a few eye infections since h er last exam; no problems now; vision good distance and near Contact Lens pt happy with Acuvue Oasys; no pain or irritation Encounter Details Date Type Department Care Team Description 06/09/2011 Office Visit [facility] [address], Examination of eyes and visi on (Primary Dx); [address] Myopia; [place], [place] [address] Blepharitis, unspecified [phone] Social History Tobacco Use Types Packs/Day Years Used Date Smoking Tobacco: Never Sex Assigned at Date Recorded Not on file documented as of this encounter Patient Instructions Patient InstructionsIrving St, OD - 06/09/2011 4:31 PM CST Blepharitis Blepharitis is a very common inflammation of the eyelids, particularly the oil glands on the very edge of the eyelid. Symptoms include irritation, itching, mucus discharge, and redness of the eyes and eyelids. This condition can occur in anyone, but more frequently in people who tend to have oily skin, dandruff, or rosacea. Three primary problems occur with blepharitis: Oil glands in the eyelid become overactive and/or plugged, causing irritation to both the eyes and the eyelids. If they become plugged enough, a stye or chalazion may form. The normal bacteria in the skin at the base of the eyelashes overgrow. There is not a true eye infection, but a moderate overgrowth of the normal bacteria, and this causes even more redness and irritation. The eye???s normal tears are less able to adequately sooth and lubricate the eye and eyelids becausethe normal oils in the tear layer are destabilized. Blepharitis treatment is to control the symptoms, usually with a combination of treatments including: * At least twice a day, place a warm, wet washcloth over your closed eyelids for a minute. Rewet itas it cools, two or three times. This will soften and loosen scales and debris. More important, it helps liquefy the oily secretions from the eyelids??? oil glands, which helps prevent the development of a chalazion, an inflamed lump in an eyelid oil gland. * As instructed by your doctor, consider using a commercial eyelid negative cleaner (such as OCUSOFT or STERILID), or baby shampoo to help gently clean the eyelids, particularly the eyelid margin. When medications are necessary, they may include: * Artificial tears drops, over the counter, to relieve symptoms of dry eye * Antibiotics eye drops to decrease the normal bacteria on the eyelids * Antibiotics tablets taken by mouth, such as doxycycline or Minocycline, usually correction (6-12 months) * Steroid eye drops, but typically only short-term, to help decrease inflammation Thank you for choosing [facility] for your eye care needs. Many tests were done to check your eye health today including: pupil reaction, eye muscle function, peripheral (side) vision, visual acuity, and eye pressure. The health of your eyes was also checked, both on the outside as well as the inside of each eye. Your eyeglass prescription or contact prescription may have also been updated. Early detection of eye health problems is important to keep your eyes healthy over your lifetime. Atyour eye exam we are looking for signs of glaucoma, diabetes, high blood pressure, cataract, dry eye, eye allergies, and many other conditions. Frequently Asked Questions: Why do you use eye drops? We use a clear drop to dilate, or open the pupil wider. This allows us to have a clearer, wider view inside the eye to look for signs of eye disease. We use a different eye drop to check the pressure inside the eye; this is usually the yellow eye drop. How long will my eyes be blurry today? Your vision will be blurry up close for about an hour, and your eyes will stay dilated for about 4 hours. You will need to wear sunglasses when you are outside today. If you do not have any sunglasses with you, there are some disposable ones available. Please usecaution in getting around for the few hours that your eyes are dilated. How can I contact the clinic in the future? Appointment Center: [phone] Eye Dept: [phone] Online Services: [email or web address] For after hours care, call the CareLine at [phone] or . We look forward to taking care of your eye care needs in the years to come. Refractive Errors Refractive errors occur when light does not focus properly on the retina because of the shape of theeye. The resulting image is blurred. Common refractive errors are myopia (nearsightedness), hyperopia (farsightedness), astigmatism (distorted vision), and presbyopia (aging eyes). Myopia A myopic eye is longer than a normal eye or has a cornea that is too steep, causing light rays to focus in front of the retina instead of on it. With myopia, close objects appear clear, but distant ones appear blurred. Hyperopia A hyperopic eye is shorter than normal or has a cornea that is too flat. The light rays focus beyondthe retina instead of on it. Distant objects appear clear, but close ones appear blurred. Astigmatism The cornea of an astigmatic eye is curved unevenly. Images focus in front of and beyond the retina, causing both close and distant objects to appear blurry. Presbyopia Presbyopia refers to the hardening of the lens that occurs with age. After the age of 40, the lens becomes more rigid and cannot change shape as easily to accommodate near objects. This makes reading and other tasks performed at close range difficult. Presbyopia can occur in combination with any of the other three refractive errors. Refractive errors are usually corrected with eyeglasses or contact lenses. Sometimes surgery is needed or desirable. R OPERATOR documented in this encounter Progress Notes [address] [facility], OD - 06/09/2011 5:16 PM CST Contact Lens Recheck Cheyenne Blackburn is a 35 yr year old female here for a recheck of contact lenses. See Doc. Flowsheet. PLAN: OK to order Contact Lenses: See Doc. Flowsheet. Discussed blepharitis management. RTC 1 year [address] PRN [address], CHAVO R OPERATOR documented in this encounter Plan of Treatment Not on filedocumented as of this encounter Visit Diagnoses Diagnosis Examination of eyes and vision - Primary Myopia Blepharitis, unspecified documented in this encounter Care Teams Web Marketing Manager Relationship Specialty Start Date End Date Unassigned, Provider PCP - General 05/04/[address] [place] [id number] documented as of this encounter
--- OUTSIDE RECORDS SUMMARY | 2022-04-27 21:10 | XMS_ITS | Encounter Summary ---
:1975 Author Organization [facility] Address [address] [place] [address] Care Team Providers Name Role Phone Unassigned, Provider Primary Care Provider Unavailable Reason for Visit Reason Comments Other Encounter Details Date Type Department Care Team Description 12/22/2011 Office Visit [facility] Jung Lujan Vir al warts, Medicine unspecified (Primary [id number] Dx) [place] [address] [place], [place] [phone] (Wo rk) Social History Tobacco Use Types Packs/Day Years Used Date Smoking Tobacco: Never Sex Assigned at Date Recorded Not on file documented as of this encounter Last Filed Vital Signs Vital Sign Reading Time Taken Comments Blood Pressure - - Pulse 68 12/22/2011 8:02 AM CDT Temperature 36.8 ??C (98.2 ??F) 12/22/2011 8:02 AM CDT Respiratory Rate - - Oxygen Saturation - - Inhaled Oxygen Concentration - - Weight 62.7 kg (138 lb 2 oz) 12/22/2011 8:02 AM CDT Height - - Body Mass Index 30.42 06/29/2005 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 She had cryotherapy on 4 previous occasions without improvement. She had her first mckenna injection onemonth ago. She had swelling, minimal pain. Overall, good response, with few side effects. She would like to repeat. PHYSICAL EXAM: This is a middle-aged female in no acute distress. Weight is 138, pulse 68, temp 98.3. Examination reveals multiple verrucous lesions on the first and second toe of her right foot. She has approximately 7-8 lesions on her second toe with the largest being about 1 cm across. Evidence of sloughing of skin. She has 2-4 lesions on her great toe, the largest being about 3 mm across. ASSESSMENT: Verruca vulgaris. PLAN: Good treatment response and wants to continue. I cleansed the skin with alcohol. I then injected a total of 0.5 mL of Mckenna antigen into the intradermal layer beneath the largest of the warts in 4 different locations. She tolerated the procedure well. She will return in 1 month for her next treatment. I went over what to watch for in terms of adverse responses and if she has any of those, she will call or return. Otherwise, she will proceed with followup as discussed. documented in this encounter Plan of Treatment Not on filedocumented as of this encounter Visit Diagnoses Diagnosis Viral warts, unspecified - Primary documented in this encounter Care Teams Forms Designer Relationship Specialty Start Date End Date Unassigned, Provider PCP - General 05/04/[address] [place] [id number] documented as of this encounter
--- OUTSIDE RECORDS SUMMARY | 2022-04-27 21:10 | XMS_ITS | Encounter Summary ---
:1975 Author Organization [facility] Address [address] [place] [address] Care Team Providers Name Role Phone Unassigned, Provider Primary Care Provider Unavailable Reason for Visit Reason Comments WART Encounter Details Date Type Department Care Team Description 02/25/2012 [facility] Grazyna Cochran Planta r warts Medicine PA-C (Primary Dx) [address] [facility] [address] [place] [address] [place] [address] [phone] (Wo rk) Social History Tobacco Use Types Packs/Day Years Used Date Smoking Tobacco: Never Sex Assigned at Date Recorded Not on file documented as of this encounter Last Filed Vital Signs Vital Sign Reading Time Taken Comments Blood Pressure 112/60 02/25/2012 7:43 AM CDT Pulse 14 02/25/2012 7:43 AM CDT Temperature - - Respiratory Rate - - Oxygen Saturation - - Inhaled Oxygen Concentration - - Weight - - Height - - Body Mass Index - - documented in this encounter Progress Notes Grazyna Cochran PA-C - 02/25/2012 9:55 AM CDT Procedure Note: Skin Lesion Destruction CHIEF COMPLAINT: Skin wart(s) Allergies: Patient's allergies were reviewed and updated today in the Allergy section of the electronic medical record. Vital Signs: Vital Signs taken today were reviewed on the flow sheet in Electronic Medical Record. Location #1: right great toe second toe History: Lesion has been pt. has tried OTC remedies without success. Description: verrucous papule consistent with a benign wart. Number of Lesions Treated @ This Site: 6 Size of largest lesion: 15 ASSESSMENT: Plantar Wart(s) (078.19) PROCEDURE NOTE: Discussed risk of pain, blistering, infection, scarring, hypopigmentation, hyperpigmentation, and recurrence or need for re-treatment. Benefits of treatment and alternative treatments were also discussed. Clean technique was used throughout the procedure. Skin was cleaned & prepped with Alcohol. 0.5 ml of mckenna was injected subcutaneously directly into the wart tissue with adequate blanching observed. Band-Aid applied to lesion(s). PLAN: Patient will [...] stable condition. Return to clinic in 3 weeks or sooner PRN problems or concerns. *SH~PC~SLD ~Shorthand Note completed on: 02/25/2012 9:54 AM documented in this encounter Plan of Treatment Not on filedocumented as of this encounter Visit Diagnoses Diagnosis Plantar warts - Primary Plantar wart documented in this encounter Care Teams Program Manager Slp Relationship Specialty Start Date End Date Unassigned, Provider PCP - General 05/04/[address] [place] [id number] documented as of this encounter
--- OUTSIDE RECORDS SUMMARY | 2022-04-27 21:10 | XMS_ITS | Clinical Summary ---
:1975 Author Organization [facility] [place] [address] Care Team Providers Name Role Phone Yeimy Stiles MD Primary Care Provider [phone] Allergies No known active allergies Medications Medication Sig Dispensed Refills Start Date End Date Status acetaminophen Take 1 tablet by 0 07/04/2015 Active (TYLENOL EXTRA mouth every 6 hours STRGTH) 500 mg if needed. Max tablet acetaminophen dose: 4000mg in 24 hrs. ibuprofen (ADVIL; Take 1 tablet by 0 07/05/2016 Active MOTRIN) 200 mg mouth 4 times daily tablet if needed. oxyCODONE Take 1 Tablet (5 mg) 12 Tablet 0 11/10/2021 Active (ROXICODONE) 5 mg by mouth every 6 immediate release hours if needed for tabletIndications: Pain. Left inguinal hernia Hospital, Clinic, or Other Ordered Dose Route Frequency Start Date End Date Status Facility Administered Medication levonorgestrel intrauterine 1 Device IU Q 5 YEARS 07/04/2020 Active device (MIRENA) 1 DeviceIndications: Encounter for IUD removal and reinsertion Active Problems Problem Noted Date Left inguinal hernia 11/10/2021 Fibrocystic breast changes 07/10/2016 Stress incontinence in female 07/07/2015 Vitamin D deficiency 07/22/2010 Atypical mole 07/28/2009 HTN (hypertension) 07/28/2009 Overview: Started in Contraceptive surveillance, unspecified 06/23/2008 Grieving 06/23/2008 Overview: Dad was killed in [employer] Allergic rhinitis, cause unspecified 06/11/2008 Overview: [place] pollen Other and unspecified hyperlipidemia 06/11/2008 Resolved Problems Problem Noted Date Resolved Date HTN (hypertension) 06/23/2008 07/28/2009 Overview: Updated by system to replace inactive re cord Benign essential hypertension with delivery 11/26/2007 06/23/2008 Immunizations Name Administration Dates Next Due Hepatitis A (Adult) 01/09/2016, 07/04/2015 Inactivated Polio Vaccine 07/05/2016 Influenza A (H1N1), Inactivated (Age 1207/28/2009 >=3 Years) Influenza, IIV3 (Age >=3 years) 05/01/2011, 06/01/2007 Influenza, IIV4 05/15/2021, 05/15/2020, 04/13/2017, 04/30/2016, 05/15/2014 Influenza,LAIV4 Live Intranasal 07/04/2015, 05/09/2014 (Flumist) MMR 02/07/1992 Td (Age >=7 Years) 06/01/2002 Tdap 09/17/2011 Typhoid (injectable) 01/31/2017 Yellow Fever 01/31/2017 Family History Medical History Relation Name Comments Hypertension Father Sunday Mandel killed in [employer] 03/08 age 62 Cancer Maternal Grandfather leukemia Hypertension Maternal Grandmother age 98 in a ssist tomás as of 07/2017 Hypertension Mother Lizeth Mandel borderline DM Heart Disease Paternal Grandmother Cancer-breast No Family History Cancer-colon No Family History Cancer-ovarian No Family History Relation Name Status Comments Father Sunday Mandel (Age 62) killed in [employer] ([employer] 03/08) Maternal Grandfather Maternal Grandmother Alive Mother Lizeth Mandel Alive injured in [employer] ([employer] 03/08) Paternal Grandmother Sister 1 Chantel Alive Sister 2 Dayna Alive Social History Tobacco Use Types Packs/Day Years Used Date Never Smoker Smokeless Tobacco: Never Used Tobacco Cessation: Counseling Given: No Alcohol Use Standard Drinks/Week Comments Yes 0 (1 standard drink = 0.6 oz pure alcoho l) wine w/dinner Alcohol Habits Answer Date Recorded How often do you have a drink Not asked containing alcohol? How many drinks containing alcohol Not asked do you have on a typical day when you are drinking? How often do you have six or more Not asked drinks on one occasion? Comment: socially-none with or 06/21/20 08 Sex Assigned at Date Recorded Not on file Obstetrics History Para Term AB IAB SAB Ectopic Multiple Living Live Births 2 2 2 0 0 0 0 0 0 2 1 Date Outcome GA Total Labor/2nd/3rd Weight Sex Delivery Anes PTL Tomás A 1 A5 Name Clin Labor Term 02/05 Term 40w 15h 00m/ 4.79 kg M Vag Epidu N Bobbi T christopher /2005 5d (10 lb ral ng s 9 oz) Delivery Location: [facility] Comments: Pitocin after SROM Last Filed Vital Signs Vital Sign Reading Time Taken Comments Blood Pressure 121/74 11/10/2021 11:00 AM CDT Pulse 69 11/10/2021 11:00 AM CDT Temperature 36.5 ??C (97.7 ??F) 11/10/2021 9:30 AM CDT Respiratory Rate 16 11/10/2021 11:00 AM CDT Oxygen Saturation 95% 11/10/2021 11:00 AM CDT Inhaled Oxygen Concentration - - Weight 63 kg (139 lb) 11/10/2021 6:48 AM CDT Height 170.2 cm (5' 7) 11/10/2021 6:48 AM CDT Body Mass Index 21.77 11/10/2021 6:48 AM CDT Plan of Treatment Health Maintenance Due Date Last Done Comments Hepatitis C screening for age 0209/27/1991 18-79 Colonoscopy through age 75 2018 Lipids for age 45-75 07/05/2021 07/05/2016, 07/04/2015, 02/06/2014, Additional history exists Tetanus booster 09/17/2021 09/17/2011, 06/01/2002 Influenza for age 9-49 04/01/2022 05/15/2021, 05/15/2020, 04/13/2017, Additional history exists Mammogram for age 45-75 06/02/2022 06/02/2021, 05/09/2020, 04/30/2020, Additional history exists Depression screening for age 12+ 08/14/2022 08/14/2021, 03/2017, 07/05/2016 BMI (ht and wt on same day) for 11/05/2022 11/05/2021, 02/09/2021, age 18+ 08/14/2021, Additional history exists Pap test for age 21-65 07/04/2025 07/04/2020, 07/04/2020, 07/08/2017, Additional history exists Tdap Completed 09/17/2011 COVID-19 vaccine series Completed 06/23/2021, 11/13/2020, 10/16/2020 Medical Devices Implanted Type Area Classification Inspector Device Shelf Model / Identifier Expiration Serial / Date Lot Mesh Inguinal Lt 4x6in 3-D Max - [id number] Left: [employer] 05/28/2026 [id number] / Implanted: Qty: 1 on 11/10/2021 by Chandni Webber MD at [facility] Inguinal / [id number] Results Not on filefrom Last 3 Months Insurance Payer Benefit Plan / Subscriber ID Effective Dates Phone Addre ss Type Group MEDICA MEDICA CHOICE [id number] 2019-Present [address] [id number] [place] [address] Guarantor Name Account Type Relation to Date of Phone Billing Patient Address [place] Personal/Family Self 1975 [id number] [phone] [place], [place] (Work) [id number] Advance Directives Latest Code Status on File Code Status Date Activated Date Inactivated Comments Full Code 11/10/2021 6:34 AM 11/10/2021 1:19 PM Code Status Discussion: Unable to Assess Preferences, Provid er to review later Full Code 11/24/2007 5:03 PM 11/26/2007 3:42 PM Full Code 11/24/2007 8:42 AM 11/24/2007 5:03 PM Full Code 02/05/2005 10:36 PM 02/07/2005 5:51 PM Full Code 02/05/2005 11:07 AM 02/05/2005 9:28 PM Care Teams Granulator Tender Relationship Specialty Start Date End Date Yeimy Stiles MD PCP - General 05/24/08 [address] [place] [address]
--- OUTSIDE RECORDS SUMMARY | 2022-04-27 21:10 | XMS_ITS | Encounter Summary ---
:1975 Author Organization [facility] Address [address] [place] [address] Care Team Providers Name Role Phone Unassigned, Provider Primary Care Provider Unavailable Encounter Details Date Type Department Care Team Description 12/02/2010 PN Conversion Only CONVERSION CONVERSION Social History Tobacco Use Types Packs/Day Years Used Date Smoking Tobacco: Never Sex Assigned at Date Recorded Not on file documented as of this encounter Plan of Treatment Not on filedocumented as of this encounter Visit Diagnoses Not on filedocumented in this encounter Care Teams Winding Lathe Operator Relationship Specialty Start Date End Date Unassigned, Provider PCP - General 05/04/[address] [place] [id number] documented as of this encounter
--- OUTSIDE RECORDS SUMMARY | 2022-04-27 21:11 | XMS_ITS | Encounter Summary ---
:1975 Author Organization [employer] Address [address] [place] [address] Care Team Providers Name Role Phone Unassigned, Provider Primary Care Provider Unavailable Encounter Details Date Type Department Care Team Description 06/29/2005 [facility] gregoriogayla Grazyna Cochran PA-C [address] [place] [address] [place] [address] [phone] (Wo rk) Social History Tobacco Use Types Packs/Day Years Used Date Smoking Tobacco: Never Assessed Sex Assigned at Date Recorded Not on file documented as of this encounter Last Filed Vital Signs Vital Sign Reading Time Taken Comments Blood Pressure 138/90 06/29/2005 11:43 AM AREA CLEANER Pulse 56 06/29/2005 11:42 AM AREA CLEANER Temperature - - Respiratory Rate - - Oxygen Saturation - - Inhaled Oxygen Concentration - - Weight 62.4 kg (137 lb 7.7 oz) 06/29/2005 11:42 AM C: 6 2.4kg AREA CLEANER Height 143.5 cm (4' 8.5) 06/29/2005 11:42 AM C: 143.5c m AREA CLEANER Body Mass Index 30.28 06/29/2005 11:42 AM AREA CLEANER documented in this encounter Progress Notes Grazyna Cochran PA-C - 06/29/2005 12:01 AM CST H&P signed by Grazyna Cochran PA-C at 06/29/05 2982 Author: Grazyna Christianson PA-C Service: (none) Author Type: Physician Head Greenskeeper Filed: 11/20/10 0836 Note Time: 06/29/05 0001 Status: Signed Planning Division Superintendent: Grazyna Christianson PA-C (Physician Head Greenskeeper) Preventive Exam & Pelvic IMPRESSION: Routine preventive exam. Urinary stress incontinence. SUBJECTIVE: Patient presents for a routine preventive physical exam. Pt. voices concerns about: Stress incontinence since having her baby. She cannot hold her urine for extended periods of time. No dysuria, no fevers. Thinks her symptoms are getting slightly better. Current contraception: Is breast feeding and using the minipill. Past Medical History: Patient's active medical problems were reviewed and updated on the Health Profile screen of [facility]. Director Selection And Administration History: : 1 - 1 Pap History: No history of abnormal Pap smears. Menstrual History: LMP: Is post partem, delivery date 02-05-2005. Other Medical/Surgical History: No DVT, pulmonary embolism or stroke. No surgeries. Adverse Drug Reactions: Pt's Adverse Drug Reactions were reviewed today, and updated on the Health Profile of [facility]. Current Medications: Reviewed today and updated on Health Profile in [facility]. Family History: (First degree family members) No premature ASCVD. No breast CA. No colon CA. No diabetes Mellitus. No DVT, Pulmonary Embolism or Stroke. Hypertension. Hyperlipidemia. No hypothyroidism. Paternal grandmother of a stroke at the age of 81. Social History: Employed. Marital Status: . Children's Ages: 5 mos. Sexual History: Monogamous relationship. Habits No tobacco/alcohol/drug use Preventive Health Assessment: Calcium intake adequate. Exercise adequate. Safe in relationship. Uses seatbelts. Tetanus immunization is up-to-date. Sun protection used. Review of Systems: With the exception of any items noted above, the remainder of complete ROS is negative. OBJECTIVE: Age: 29 years. Current Weight: 137.5 lbs. / 62.5 kg. Current Height: 56.5 inches Current BMI: 30.3 Kg/meters squared Pulse: 56. Blood Pressure: 138/90. General: Patient alert, in NAD. HEENT: PERRLA. Bilateral TM's, external Icanals, oropharynx normal. Neck: Supple, without thyromegaly or mass. Heart: RRR without murmurs, rubs or gallops. Resp: Clear to auscultation Kwithout crackles, wheezes or distress. Upper Extremities: FROM with good Lstrength, no lesions or deformities. Breasts: Moderate diffuse nodularity Mwithout definite mass. No axillary adenopathy. Abdomen: Soft, non-tender, Nwithout hepatosplenomegaly, masses, or hernias. Pelvic: Deferred. Lymphatic: No neck, supraclavicular, axillary or groin lymphadenopathy. Lower Extremities: FROM, normal gait, without lesions, edema or deformity. QPedal pulses intact. Skin: Scattered benign nevi. Neuro: CN II-XII, Rmotor & sensory function all intact. Psychiatric: Alert & oriented with normal affect and insight, does not appear depressed or anxious. Patient had a normal pap in 04/05 at a different clinic. ASSESSMENT: Routine preventive exam. Urinary stress incontinence. PLAN: Follow-up in 1 year Date of last dT: Patient will have her records transferred. Breast self-exam recommended. Instructed on breast self-exam. Recommended adequate calcium intake/osteoporosis prevention. Discussed & recommended a balanced nutritious diet. Discussed benefits of regular exercise. Discussed sun protection. Encouraged Kegel exercises, she expressed knowledge on how to do them. I offered PT for formal training, she deferred at this time. *SH~PC~PEF ~Shorthand Note completed on: 06/29/2005 11:02 PM CLEANER documented in this encounter Plan of Treatment Not on filedocumented as of this encounter Visit Diagnoses Not on filedocumented in this encounter Care Teams Billing Assistant Relationship Specialty Start Date End Date Unassigned, Provider PCP - General 05/04/[address] [place] [id number] documented as of this encounter
--- OUTSIDE RECORDS SUMMARY | 2022-04-27 21:11 | XMS_ITS | Encounter Summary ---
:1975 Author Organization [facility] Address [address] [place] [address] Care Team Providers Name Role Phone Unassigned, Provider Primary Care Provider Unavailable Encounter Details Date Type Department Care Team Description 06/08/2005 PN Conversion Only [facility] Social History Tobacco Use Types Packs/Day Years Used Date Smoking Tobacco: Never Assessed Sex Assigned at Date Recorded Not on file documented as of this encounter Plan of Treatment Not on filedocumented as of this encounter Visit Diagnoses Not on filedocumented in this encounter Care Teams Oil And Gas Superintendent Relationship Specialty Start Date End Date Unassigned, Provider PCP - General 05/04/[address] [place] [address] documented as of this encounter
--- OUTSIDE RECORDS SUMMARY | 2022-04-27 21:11 | XMS_ITS | Encounter Summary ---
:1975 Author Organization [facility] Address [address] [address] Care Team Providers Name Role Phone Unassigned, Provider Primary Care Provider Unavailable Encounter Details Date Type Department Care Team Description 09/15/2005 Office Visit [facility] [place] [address] [place] [address] [place] [address] Social History Tobacco Use Types Packs/Day Years Used Date Smoking Tobacco: Never Assessed Sex Assigned at Date Recorded Not on file documented as of this encounter Last Filed Vital Signs Vital Sign Reading Time Taken Comments Blood Pressure 154/94 09/15/2005 11:50 AM STUDIO RECEPTIONIST Pulse 61 09/15/2005 11:50 AM STUDIO RECEPTIONIST Temperature 36.4 ??C (97.5 ??F) 09/15/2005 11:50 AM STUDIO RECEPTIONIST C: 3 6.4 C Respiratory Rate 16 09/15/2005 11:50 AM STUDIO RECEPTIONIST Oxygen Saturation - - Inhaled Oxygen Concentration - - Weight - - Height - - Body Mass Index - - documented in this encounter Progress Notes Ranjeet Jay MD - 09/15/2005 12:01 AM CST Progress Notes signed by Ranjeet Jay MD at 10/12/05 2214 Author: Ranjeet Jay MD Service: (none) Author Type: Physician Filed: 11/20/10 1013 Note Time: 09/15/05 0001 Status: Signed Tick Inspector: Ranjeet Jay MD (Physician) NAME: CHEYENNE RASHID MR: [id number] ACCT: [id number] VISIT: [id number] DICTATING CLINICIAN: RANJEET JAY MD JOB: [id number] CLINIC PROGRESS NOTE DATE OF VISIT: 09/15/2005 SUBJECTIVE: The patient's had left ear discomfort for two days, but off and on has had a cold for three weeks with secondly coughing up and thirdly blowing out of her nose some yellow and green mucous. Fourth, we talked about her blood pressure reading which is up today. She denies taking qasp-lle-udgrpgu medicines and is nursing a 7-month-old. She is taking control pills. She said that on past history her blood pressure was up a bit at her physical in July and she is not sure about family history in regards to that. SOCIAL HISTORY: Includes no recent exposures. ADR/ALLERGIES: SHE DENIES ALLERGIES TO MEDICINES. OBJECTIVE: VS: BP: Is up as noted. T: 97.6. She does have a bronchial sounding cough, but lungs are clear to auscultation. She does have early left otitis media and right serous otitis media. Swollen anterior glands are noted and throat shows some drainage with also some thick sinus mucous to be present. ASSESSMENT: 1. Otitis media. 2. Bronchitis. 3. Sinusitis. 4. Elevated blood pressure reading. PLAN: She should again avoid Sudafed and medications like that, but may take Tylenol. Start Keflex 500 mg t.i.d. times 10 days with back up method for control while on this. Should be seen right away if worsening or if new symptoms or if not improving quickly and completely with the medication, but also follow up in the very near future on her blood pressure, which she agrees to do. [id number] C: 09/16/05 09:08 DOCUMENT: [id number] IO RECEPTIONIST documented in this encounter Plan of Treatment Not on filedocumented as of this encounter Visit Diagnoses Not on filedocumented in this encounter Care Teams Gut Puller Relationship Specialty Start Date End Date Unassigned, Provider PCP - General 05/04/[address] [place] [phone] documented as of this encounter
--- OUTSIDE RECORDS SUMMARY | 2022-04-27 21:11 | XMS_ITS | Encounter Summary ---
:1975 Author Organization [facility] Address [address] [place] [address] Care Team Providers Name Role Phone Unassigned, Provider Primary Care Provider Unavailable Encounter Details Date Type Department Care Team Description 09/15/2005 PN Conversion Only [address] [address] [place] [address] Social History Tobacco Use Types Packs/Day Years Used Date Smoking Tobacco: Never Assessed Sex Assigned at Date Recorded Not on file documented as of this encounter Plan of Treatment Not on filedocumented as of this encounter Visit Diagnoses Not on filedocumented in this encounter Care Teams Newspaper Or Periodical Editor Relationship Specialty Start Date End Date Unassigned, Provider PCP - General 05/04/00 [address] [place] [address] documented as of this encounter
--- OUTSIDE RECORDS SUMMARY | 2022-04-30 10:47 | XMS_ITS | Encounter Summary ---
:1975 Author Organization [employer] Address [address] [place] [address] Care Team Providers Name Role Phone Unassigned, Provider Primary Care Provider Unavailable Reason for Visit Reason Comments AMELIA MORALES Encounter Details Date Type Department Care Team Description 03/20/2012 Office Visit [facility] Grazyna Cochran Planta r warts Medicine FARAZ (Primary Dx) [address] [facility] [address] [place] [address] [place] [address] [phone] (Wo rk) Social History Tobacco Use Types [...] wart documented in this encounter Care Teams Black Leather Buffer Relationship Specialty Start Date End Date Unassigned, Provider PCP - General 05/04/[address] [place] [address] documented as of this encounter
--- OUTSIDE RECORDS SUMMARY | 2022-04-30 10:47 | XMS_ITS | Clinical Summary ---
:1975 Author Organization [employer] [place] [address] Care Team Providers Name Role Phone Yeimy Stiles MD Primary Care Provider [phone] Allergies No known active allergies Medications [...] Grieving 06/23/2008 Overview: Dad was killed in [place] Allergic rhinitis, cause unspecified 06/11/2008 Overview: [place] pollen Other and unspecified hyperlipidemia 06/11/2008 Resolved [...] Comments Hypertension Father Sunday Mandel killed in [place] 03/08 age 62 Cancer Maternal Grandfather leukemia Hypertension Maternal Grandmother age 98 in a ssist tomás as of 07/2017 Hypertension Mother Lizeth Mandel borderline DM Heart Disease Paternal Grandmother Cancer-breast No Family History Cancer-colon No Family History Cancer-ovarian No Family History Relation Name Status Comments Father Sunday Mandel (Age 62) killed in [employer] [place]08) Maternal Grandfather Maternal Grandmother Alive Mother Lizeth Mandel Alive injured in [place] ([place]/08) Paternal Grandmother Sister 1 Chantel Alive [...] 11/13/2020, 10/16/2020 Medical Devices Implanted Type Area Substance Abuse Therapist Device Shelf Model / Identifier Expiration Serial / Date Lot Mesh Inguinal Lt 4x6in 3-D Max - [id number] Left: [employer] 05/28/2026 [id number] / Implanted: Qty: 1 on 11/10/2021 by Chandni Webber MD at [facility] Inguinal / [id number] Results Not on filefrom Last 3 Months Insurance Payer Benefit Plan / Subscriber ID Effective Dates Phone Addre ss Type Group MEDICA MEDICA CHOICE [id number] 2019-Present [address] [address] [place] [address] Guarantor Name Account Type Relation to Date of Phone Billing Patient Address [place] Personal/Family Self 1975 [phone] [id number] [phone] [place], [place] (Work) [address] Advance Directives Latest Code Status on File [...] 11:07 AM 02/05/2005 9:28 PM Care Teams Developer Automatic Relationship Specialty Start Date End Date Yeimy Stiles MD PCP - General 05/24/08 [address] [place] [address]
--- OUTSIDE RECORDS SUMMARY | 2022-04-30 10:47 | XMS_ITS | Encounter Summary ---
:1975 Author Organization [email or web address] Address [address] [place] [address] Care Team Providers Name Role Phone Unassigned, Provider Primary Care Provider Unavailable Reason for Visit Reason Comments AMELIA MORALES Encounter Details Date Type Department Care Team Description 11/23/2011 Office Visit [facility] Jung Lujan Pla ntar wart (Primary Medicine Dx) [address] [place] [address] [place], [place] [phone] (Wo rk) Social History Tobacco Use Types [...] Body Mass Index 30.83 06/29/2005 11:42 AM LAY MIDWIFE documented in this encounter Progress Notes Jung Lujan MD - 11/23/2011 12:21 PM CDT Procedures signed by Jung Lujan MD at 11/23/11 4207 Author: Jung Lujan MD Service: (none) Author Type: Physician Filed: 11/23/11 1052 Note Time: 11/23/11 1221 Status: Signed Scale Installer: Jung Lujan MD (Physician) NAME: CHEYENNE RASHID MR#: [id number] CSN: [id number] AUTHENTICATING CLINICIAN: Jung Lujan MD CONFIRM #: [id number] LOC: 502 CLINIC PROCEDURE REPORT DATE OF [...] followup as discussed. DJS:KILO C: CONFIRM #: [id number] documented in this encounter Plan of Treatment Not on filedocumented as of this encounter Visit Diagnoses Diagnosis Plantar wart - Primary documented in this encounter Care Teams Workforce Management Manager Relationship Specialty Start Date End Date Unassigned, Provider PCP - General 05/04/[address] [place] [address] documented as of this encounter
--- OUTSIDE RECORDS SUMMARY | 2022-04-30 10:47 | XMS_ITS | Encounter Summary ---
:1975 Author Organization [employer] Address [address] [place] [address] Care Team Providers Name Role Phone Unassigned, Provider Primary Care Provider Unavailable Encounter Details Date Type Department Care Team Description 06/29/2005 [facility] gregoriogayla Grazyna Cochran PA-C [address] [place] [address] [place] [address] [phone] (Wo rk) Social History Tobacco Use Types Packs/Day Years Used Date Smoking Tobacco: Never Assessed Sex Assigned at Date Recorded Not on file documented as of this encounter Last Filed Vital Signs Vital Sign Reading Time Taken Comments Blood Pressure 138/90 06/29/2005 11:43 AM BARREL TESTER Pulse 56 06/29/2005 11:42 AM BARREL TESTER Temperature - - Respiratory Rate - - Oxygen Saturation - - Inhaled Oxygen Concentration - - Weight 62.4 kg (137 lb 7.7 oz) 06/29/2005 11:42 AM C: 6 2.4kg BARREL TESTER Height 143.5 cm (4' 8.5) 06/29/2005 11:42 AM C: 143.5c m BARREL TESTER Body Mass Index 30.28 06/29/2005 11:42 AM BARREL TESTER documented in this encounter Progress Notes Grazyna Cochran PA-C - 06/29/2005 12:01 AM CST H&P signed by Grazyna Cochran PA-C at 06/29/05 6004 Author: Grazyna Christianson PA-C Service: (none) Author Type: Physician Roofing Technician Filed: 11/20/10 0836 Note Time: 06/29/05 0001 Status: Signed Magento Web Developer: Grazyna Christianson PA-C (Physician Roofing Technician) Preventive Exam & Pelvic IMPRESSION: Routine preventive [...] updated on the Health Profile screen of [facility]. Underground Drill Operator History: : 1 - 1 Pap History: No history of abnormal Pap smears. Menstrual History: LMP: Is post partem, delivery date 02-05-2005. Other Medical/Surgical History: No DVT, pulmonary embolism or stroke. No surgeries. Adverse Drug Reactions: Pt's Adverse Drug Reactions were reviewed today, and updated on the Health Profile of [facility]. Current Medications: Reviewed today and updated on Health Profile in [facility]. Family History: (First degree family members) No [...] ~Shorthand Note completed on: 06/29/2005 11:02 PM EL TESTER documented in this encounter Plan of Treatment Not on filedocumented as of this encounter Visit Diagnoses Not on filedocumented in this encounter Care Teams Correction Officer Head Relationship Specialty Start Date End Date Unassigned, Provider PCP - General 05/04/[address] [place] [address] documented as of this encounter
--- OUTSIDE RECORDS SUMMARY | 2022-04-30 10:47 | XMS_ITS | Encounter Summary ---
:1975 Author Organization [employer] Address [address] [place] [address] Care Team Providers Name Role Phone Unassigned, Provider Primary Care Provider Unavailable Reason for Visit Reason Comments AMELIA MORALES Encounter Details Date Type Department Care Team Description 10/29/[address] [facility] Jung Lujan Vir al warts, Medicine MD unspecified (Primary [address] [place]) [place] [address] [place], [place] [phone] (Wo rk) Social History Tobacco Use Types Packs/Day Years Used Date Smoking Tobacco: Never Sex Assigned at Date Recorded Not on file documented as of this encounter Last Filed Vital Signs Vital Sign Reading Time Taken Comments Blood Pressure 127/93 10/29/2011 4:38 PM CDT Pulse 60 10/29/2011 4:38 PM CDT Temperature - - Respiratory Rate - - Oxygen Saturation - - Inhaled Oxygen Concentration - - Weight 62.6 kg (138 lb) 10/29/2011 4:38 PM CDT Height - - Body Mass Index 30.39 06/29/2005 11:42 AM STRAW HAT MACHINE OPERATOR documented in this encounter Progress Notes Jung Lujan MD - 10/29/2011 5:28 PM CDT CLINIC PROCEDURE REPORT DATE OF VISIT: 10/29/2011 : 1975 [place] is a 36-year-old female here today for repeat treatment of warts.This is her 34th cryotherapy. Not as good in terms of response this time. EXAM: This is a middle-aged female, no acute distress. Weight is 138 BP 127/93 P=60 Examination of her right foot reveals lesions [...] I then did 3 cycles of cryotherapy. I then coated the lesions in canthacur and covered with band-aids. Instructions were given to wash thoroughly within 4-6 hours to remove canthacur. She is going to return in 3 [...] Primary documented in this encounter Care Teams Director Of Distribution Relationship Specialty Start Date End Date Unassigned, Provider PCP - General 05/04/[address] [place] [address] documented as of this encounter
--- OUTSIDE RECORDS SUMMARY | 2022-04-30 10:47 | XMS_ITS | Encounter Summary ---
:1975 [address] [facility] Address [address] [place] [address] Care Team Providers Name Role Phone Unassigned, [...] on filedocumented in this encounter Care Teams Racing Driver Relationship Specialty Start Date End Date Unassigned, Provider PCP - General 05/04/[address] [place] [address] documented as of this encounter
--- OUTSIDE RECORDS SUMMARY | 2022-04-30 10:47 | XMS_ITS | Encounter Summary ---
:1975 Author Organization [facility] Address [address] [place] [address] Care Team Providers Name Role Phone Unassigned, Provider Primary Care Provider Unavailable Reason for Visit Reason Onset Date Comments Travel Consult 01/31/2017 Encounter Details Date Type Department Care Team Description 01/31/2017 Initial Consult [facility] [address] Hern[address] for travel; Travel Clinic [facility] Need for immunization agains t typhoid; [facility] Herndon Issa Need for immunization [place] [address] Social History Tobacco Use Types Packs/Day Years Used Date Smoking Tobacco: Never Smokeless Tobacco: Never Sex Assigned at Date Recorded Not on file documented as of this encounter Progress Notes Emili Hernandes RN - 01/31/2017 8:14 AM CDT Subjective: Cheyenne Blackburn is a 41 y.o. female who presents to the clinic for travel consultation accompanied by children,. TRAVEL PLANS Planned departure date: February 16, 2017 Time in developing countries: 10 days. Countries of travel: [place] Areas in country: rural mostly Traveling to Malarial area: yes Time in malarial area: 10 days. Reviewed Malarial risk map: yes Prior malarial chemoprophylaxis use: No Traveling to Yellow Fever area: yes Accommodations: hotel and resort Purpose of travel: pleasure- safaris PRIOR HEALTH HISTORY Currently ill / Fever: no Currently taking antibiotics: no History of liver or kidney disease: No History of anxiety or depression: No History of cardiac arrhythmia or rhythm conduction abnormalities (QT prolongation): No History of GERD/IBS: No History of cancer: no Currently immune compromised or taking high dose steroids: No Other relevant travel health history: no Patient Active Problem List Diagnosis ??? Plantar warts No Known Allergies Outpatient Medications Prior to Visit Medication Sig Dispense Refill ??? lisinopril (AKA ZESTRIL) 10 MG tablet Take one tablet by mouth every day. No facility-administered medications prior to visit. Is the patient ? no ? no Assessment: Contraindications to travel: no Plan: PATIENT EDUCATION Patient was given verbal and/or written information about: Insect-related illnesses and prevention, Travax/CDC information, Traveler's Diarrhea, Vaccine- Preventable Diseases: cholera, hepatitis A, hepatitis B, influenza, measles, mumps, rubella, meningococcal meningitis, rabies, typhoid fever, yellow fever, Malaria, Other Diseases: trypanosomiasis, arboviral infections, brucellosis, chikungunya, dengue, leishmaniasis, rickettsial infections, schistosomiasis, sexually transmitted infections, travelers' diarrhea, tuberculosis, viral hemorrhagic fevers, West Nile virus, Zika Reviewed vaccine schedule and efficacy. Patient appears to understand all the information provided. Discussed the use of Pepto Bismol and Imodium (follow package insert) See below for vaccines and medications ordered this visit. Patient had no reaction. Patient declined: Hepatitis B #1, Menveo, MMR, patient feels confident she had MMR x2 as a child. FOLLOW UP Laboratory Studies: No labs ordered. Return To Clinic: No follow-up visit needed. Time spent on travel education Individual counselin minutes. IMMUNIZATIONS AND PRESCRIPTIONS Orders Placed This Encounter Procedures ??? YF (YELLOW FEVER) ??? TYPHOID (TYPHIM , IM) Orders Placed This Encounter Medications ??? mefloquine (LARIAM) 250 MG tablet Sig: Take 1 tab weekly starting 2 wks before malarial mosquito exposure, wkly while there, and continue for 4 weeks after Dispense: 8 Tab Refill: 0 ??? azithromycin (ZITHROMAX) 500 MG tablet Sig: Take 1 tab daily for 3 days as needed for severe travelers diarrhea. Dispense: 3 Tab Refill: 0 Family members are taking Larium, patient requests as well. Immunization History Administered Date(s) Administered ??? H1N1 (Hospital/Clinic History Use) 07/28/2009 ??? HepA Adult (19+ yrs) 07/04/2015, 01/09/2016 ??? IPV (Polio) 07/05/2016 ??? Influenza (Fluarix or Fluzone 0.5, 3+ yrs) 05/15/2014, 04/30/2016 ??? Influenza Vaccine - Historical 05/01/2011, 05/09/2014, 07/04/2015 ??? MMR 02/07/1992 ??? Tdap 09/17/2011 ??? Typhoid (Typhim Vi, IM) 01/31/2017 ??? YF (Yellow Fever) 01/31/2017 documented in this encounter Plan of Treatment Not on filedocumented as of this encounter Visit Diagnoses Diagnosis Counseling for travel Other specified counseling Need for immunization against typhoid Need for other specified prophylactic va ccination against single bacterial disease Need for immunization against yellow fev er Need for prophylactic vaccination and in oculation against yellow fever documented in this encounter Care Teams Fur Weigher Relationship Specialty Start Date End Date Unassigned, Provider PCP - General 05/04/[address] [place] [address] documented as of this encounter
--- OUTSIDE RECORDS SUMMARY | 2022-04-30 10:47 | XMS_ITS | Encounter Summary ---
:1975 Author Organization [facility] Address [address] [facility] [place] [address] Care Team Providers Name Role Phone Unassigned, Provider Primary Care Provider Unavailable Reason for Visit Reason Comments Other Encounter Details Date Type Department Care Team Description 12/22/2011 Office Visit [facility] Jung Lujan Vir al warts, Medicine unspecified (Primary [address] [place]x) [place] [address] [place], [place] [phone] (Wo rk) Social History Tobacco Use Types [...] Body Mass Index 30.42 06/29/2005 11:42 AM CENTRAL STERILIZATION TECHNICIAN documented in this encounter Progress Notes Jung [...] Primary documented in this encounter Care Teams Icu Registered Nurse Relationship Specialty Start Date End Date Unassigned, Provider PCP - General 05/04/[address] [place] [address] documented as of this encounter
--- OUTSIDE RECORDS SUMMARY | 2022-04-30 10:47 | XMS_ITS | Encounter Summary ---
:1975 Author Organization [facility] Address [address], [place] [address] Care Team Providers Name Role Phone Unassigned, Provider Primary Care Provider Unavailable Encounter Details Date Type Department Care Team Description 02/04/2006 Office [place] [address] [address] [facility] [address] [place] [address] [place], [place] [phone] (Wo rk) Social History Tobacco Use Types [...] signed by Hanh Galan MD at 02/04/06 8952 Author: Hanh Galan MD Service: (none) Author Type: Physician Filed: 11/20/10 1303 Note Time: 02/04/06 0001 Status: Signed Sfdc Architect: Hanh Galan MD (Physician) NAME: CHEYENNE RASHID MR: [id number] ACCT: VISIT: [id number] DICTATING CLINICIAN: Hanh Galan MD JOB: [id number] CLINIC PROGRESS NOTE DATE OF VISIT: 02/04/2006 [...] She verbalized understanding and agreement with this. JLP:[id number] C: 02/04/06 15:04 DOCUMENT: [id number] documented in this encounter Plan of Treatment Not on filedocumented as of this encounter Visit Diagnoses Not on filedocumented in this encounter Care Teams Substation Operator Helper Generation Relationship Specialty Start Date End Date Unassigned, Provider PCP - General 05/04/[address] [place] [address] documented as of this encounter
--- OUTSIDE RECORDS SUMMARY | 2022-04-30 10:47 | XMS_ITS | Encounter Summary ---
:1975 Author Organization [facility] Address [address] [place] [address] Care Team Providers Name Role Phone Unassigned, Provider Primary Care Provider Unavailable Encounter Details Date Type Department Care Team Description 09/15/2005 PN Conversion Only [address] [address] [place] [address] Social History Tobacco Use Types Packs/Day Years Used Date Smoking Tobacco: Never Assessed Sex Assigned at Date Recorded Not on file documented as of this encounter Plan of Treatment Not on filedocumented as of this encounter Visit Diagnoses Not on filedocumented in this encounter Care Teams Mobile Battery Technician Relationship Specialty Start Date End Date Unassigned, Provider PCP - General 05/04/00 [address] [place] [address] documented as of this encounter
--- OUTSIDE RECORDS SUMMARY | 2022-04-30 10:47 | XMS_ITS | Clinical Summary ---
:1975 Author Organization [facility] Address [address] [place] [address] Care Team Providers Name Role Phone Unassigned, [...] for each transition of care or referral. [employer] Allergies No known active allergies Medications Medication [...] 02/25/2012 Immunizations Name Administration Dates Next Due [id number] 07/28/2009 HepA Adult (19+ yrs) 01/09/2016, 07/04/2015 IPV (Polio) 07/05/2016 Influenza IIV4 (Quadrivalent) 0.5mL 04/30/2016, 05/15/2014 ([id number]) Influenza, Unspecified Formulation 07/04/2015, 05/09/2014, 1 MMR [...] Comments Blood Pressure 110/76 06/16/2012 1:25 PM NATIONAL SECRETARY Pulse 48 06/16/2012 1:25 PM NATIONAL SECRETARY Temperature 36.8 ??C (98.2 ??F) 12/22/2011 8:02 AM CDT Respiratory Rate 16 05/05/2012 11:14 AM CDT Oxygen Saturation - - Inhaled Oxygen Concentration - - Weight 63.6 kg (140 lb 3.2 oz) 06/16/2012 1:25 PM NATIONAL SECRETARY Height 170.2 cm (5' 7) 06/16/2012 1:25 PM NATIONAL SECRETARY Body Mass Index 21.96 06/16/2012 1:25 PM NATIONAL SECRETARY Plan of Treatment Health Maintenance Due Date [...] patient 's age to complete this topic [phone] [phone] [place], [place] (Work) [phone] Tequila Blackburn Personal/Family Self 1975 [phone] [phone] [place], [place] (Work) [phone] Tequila Blackburn Personal/Family Self 1975 [phone] (Home) [place] [phone] [place], [place] (Work) [address] Care Teams Weld Engineer Relationship Specialty Start Date End Date Unassigned, Provider PCP - General 05/04/[address] [place] [address]
--- OUTSIDE RECORDS SUMMARY | 2022-04-30 10:47 | XMS_ITS | Encounter Summary ---
:1975 Author Organization [facility] Address [address] [place] [address] Care Team Providers Name Role Phone Unassigned, Provider Primary Care Provider Unavailable Reason for Visit Reason Comments CORNEAL ABRASION 1st visit to EYE. OS star jarrell feeling irritated and got real red on Tuesday10/03/09. Saw a doct or at [facility] in [facility] and was told that she had a Hinckley eal Abrasion. Was given Emycin ointment to use, but made OS feel calos n worse and blurred VA so stopped after 1 day of use. Patient is a S CL wearer. Has been out of CLs x 3 days. OS still itches, feels strai césar, and photophobic. No mattering and redness is much better. Encounter Details Date Type Department Care Team Description 10/07/2009 Office Visit [facility] [address], Marginal Corneal [address] OD Ulcer (Primary Dx) [place], [place] [address] Social History Tobacco Use Types Packs/Day Years Used Date Smoking Tobacco: Never Sex Assigned at Date Recorded Not on file documented as of this encounter Progress Notes [address] - 10/07/2009 5:52 PM CST Cheyenne Blackburn is here today for follow up after being seen at [facility] for a painful left eye, diagnosed as corneal abrasion. She was prescribed e-mycin ointment, but apparently had a negative reaction to that. The eye is not 100%, but is better and is less red. See Main Exam. A: corneal infiltrate, CL wearer, left eye. P: RX Zylet for 1 week. Resume CL WT slowly and cautiously. 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
--- OUTSIDE RECORDS SUMMARY | 2022-04-30 10:47 | XMS_ITS | Encounter Summary ---
:1975 Author Organization [facility] Address [address] [place] [address] Care Team Providers Name Role Phone Unassigned, [...] Department Care Team Description 06/09/2011 Office Visit [facility] [address], Examination of eyes and visi on (Primary Dx); [address] Myopia; [place], [place] [address] Blepharitis, unspecified [phone] Social History Tobacco Use Types Packs/Day Years [...] your doctor, consider using a commercial eyelid sack cleaner (such as OCUSOFT or STERILID), or baby shampoo to help gently clean the eyelids, particularly the eyelid margin. When medications are necessary, they may include: * Artificial tears drops, over the counter, to relieve symptoms of dry eye * Antibiotics eye drops to decrease the normal bacteria on the eyelids * Antibiotics tablets taken by mouth, such as doxycycline or Minocycline, usually fdc (6-12 months) * Steroid eye drops, but [...] the clinic in the future? Appointment Center: [phone] Eye Dept: [phone] Online Services: [email or web address] For after hours care, call the CareLine at [phone] or . We look forward to taking [...] lenses. Sometimes surgery is needed or desirable. VERY ARCHITECT documented in this encounter Progress Notes [address], OD - 06/09/2011 5:16 PM CST Contact Lens Recheck Cheyenne Blackburn is a 35 yr year old female here for a recheck of contact lenses. See Doc. Flowsheet. PLAN: OK to order Contact Lenses: See Doc. Flowsheet. Discussed blepharitis management. RTC 1 year [address] PRN [address], CHAVO VERY ARCHITECT documented in this encounter Plan of Treatment Not on filedocumented as of this encounter Visit Diagnoses Diagnosis Examination of eyes and vision - Primary Myopia Blepharitis, unspecified documented in this encounter Care Teams Weld Engineer Relationship Specialty Start Date End Date Unassigned, Provider PCP - General 05/04/[address] [place] [address] documented as of this encounter
--- OUTSIDE RECORDS SUMMARY | 2022-04-30 10:47 | XMS_ITS | Encounter Summary ---
:1975 Author Organization [facility] Address [address] [address] [facility] [place] [address] Care Team Providers Name Role Phone Unassigned, Provider Primary Care Provider Unavailable Reason for Visit Reason Comments AMELIA MORALES Encounter Details Date Type Department Care Team Description 09/15/2011 Office Visit [facility] Jung Lujan Vir al warts, Medicine MD unspecified (Primary [address] [place]x) [place] [address] [place], [place] [phone] (Wo rk) Social History Tobacco Use Types Packs/Day Years Used Date Smoking Tobacco: Never Sex Assigned at Date Recorded Not on file documented as of this encounter Last Filed Vital Signs Vital Sign Reading Time Taken Comments Blood Pressure 100/60 09/15/2011 8:30 AM RETAIL SALESPERSON Pulse 80 09/15/2011 8:30 AM RETAIL SALESPERSON Temperature - - Respiratory Rate - - Oxygen Saturation - - Inhaled Oxygen Concentration - - Weight 62.1 kg (137 lb) 09/15/2011 8:30 AM RETAIL SALESPERSON Height - - Body Mass Index 30.17 06/29/2005 11:42 AM RETAIL SALESPERSON documented in this encounter Progress Notes Jung Lujan MD - 09/15/2011 1:11 PM CST Procedures signed by Jung Lujan MD at 09/15/11 7447 Author: Jung Lujan MD Service: (none) Author Type: Physician Filed: 09/15/11 1428 Note Time: 09/15/11 1311 Status: Signed Proof Sorter: Jung Lujan MD (Physician) NAME: CHEYENNE RASHID MR#: [id number] CSN: [id number] AUTHENTICATING CLINICIAN: Jung Lujan MD CONFIRM #: [id number] LOC: 502 CLINIC PROCEDURE REPORT DATE OF [...] that going forward. DJS:KILO C: CONFIRM #: [id number] [place] SALESPERSON documented in this encounter Plan of Treatment Not on filedocumented as of this encounter Visit Diagnoses Diagnosis Viral warts, unspecified - Primary documented in this encounter Care Teams Livestock Broker Relationship Specialty Start Date End Date Unassigned, Provider PCP - General 05/04/[address] [place] [address] documented as of this encounter
--- OUTSIDE RECORDS SUMMARY | 2022-04-30 10:47 | XMS_ITS | Encounter Summary ---
:1975 Author Organization [facility] Address [address] [place] [address] Care Team Providers Name Role Phone Unassigned, Provider Primary Care Provider Unavailable Reason for Visit Reason Comments AMELIA MORALES Encounter Details Date Type Department Care Team Description 04/14/2012 Office Visit [facility] Grazyna Cochran Planta r warts Medicine FARAZ (Primary Dx) [address] [facility] [address] [place] [address] [place] [address] [phone] (Wo rk) Social History Tobacco Use Types Packs/Day Years Used Date Smoking Tobacco: Never Sex Assigned at Date Recorded Not on file documented as of this encounter Last Filed Vital Signs Vital Sign Reading Time Taken Comments Blood Pressure 100/68 04/14/2012 4:07 PM CDT Pulse 80 04/14/2012 4:07 PM CDT Temperature - - Respiratory Rate 16 04/14/2012 4:07 PM CDT Oxygen Saturation - - Inhaled Oxygen Concentration - - Weight - - Height - - Body Mass Index - - documented in this encounter Progress Notes Grazyna Cochran PA-C - 04/30/2012 5:49 PM CDT Procedure Note: Skin Lesion Destruction CHIEF COMPLAINT: Skin wart(s) Allergies: Patient's allergies were reviewed and updated today in the Allergy section of the electronic medical record. Vital Signs: Vital Signs taken today were reviewed on the flowsheet in Electronic Medical Record. Location #1: left great toe second toe History: Lesion has been Description: verrucous papule consistent with a benign wart. Number of Lesions Treated @ This Site: 4 Size of largest lesion: 3 mm. ASSESSMENT: [...] or concerns. *SH~PC~SLD ~Shorthand Note completed on: 04/30/2012 5:48 PM documented in this encounter Plan of Treatment Not on filedocumented as of this encounter Visit Diagnoses Diagnosis Plantar warts - Primary Plantar wart documented in this encounter Care Teams Imaging Aide Relationship Specialty Start Date End Date Unassigned, Provider PCP - General 05/04/[address] [place] [address] documented as of this encounter
--- OUTSIDE RECORDS SUMMARY | 2022-04-30 10:47 | XMS_ITS | Encounter Summary ---
:1975 Author Organization [facility] Address [address] [address] Care Team Providers Name Role Phone Unassigned, Provider Primary Care Provider Unavailable Reason for Visit Reason Comments AMELIA MORALES Encounter Details Date Type Department Care Team Description 08/26/2011 Office Visit [facility] Jung Lujan Pla ntar wart (Primary Medicine MD Dx) [address] [address] [place] [address] [place], [place] [phone] (Wo rk) Social History Tobacco Use Types Packs/Day Years Used Date Smoking Tobacco: Never Sex Assigned at Date Recorded Not on file documented as of this encounter Last Filed Vital Signs Vital Sign Reading Time Taken Comments Blood Pressure 112/78 08/26/2011 3:49 PM JUNIOR BOOKKEEPER Pulse 68 08/26/2011 3:49 PM JUNIOR BOOKKEEPER Temperature - - Respiratory Rate 18 08/26/2011 3:49 PM JUNIOR BOOKKEEPER Oxygen Saturation - - Inhaled Oxygen Concentration - - Weight - - Height - - Body Mass Index - - documented in this encounter Progress Notes Jung Lujan MD - 08/26/2011 5:07 PM CST Progress Notes signed by Jung Lujan MD at 08/27/11 100 Author: Jung Lujan MD Service: (none) Author Type: Physician Filed: 08/27/11 1009 Note Time: 08/26/11 170 Status: Signed Residential Collections: Jung Lujan MD (Physician) NAME: CHEYENNE RASHID MR#: [id number] CSN: [id number] AUTHENTICATING CLINICIAN: Jung Lujan MD CONFIRM #: [id number] LOC: 502 CLINIC PROGRESS NOTE DATE OF VISIT: 08/26/2011 : 1975 Cheyenne is a 35-year-old female who comes in today with warts on her right foot. Her was recently treated for warts and she developed these warts after his arose. She has tried home remedies without success and wants to proceed. PAST MEDICAL HISTORY: Unremarkable. MEDICATIONS: She takes no medications on a regular basis. ALLERGIES: She has no known drug allergies. ON PHYSICAL EXAM: This is a middle-aged female in no acute distress. Blood pressure 112/78. Pulse 68. Respirations 18. Examination of her right foot reveals multiple lesions on the great toe and the fourth and the second toe of the left foot varying in size from 1-2 mm to a large of 1-1.2 cm. She has approximately 7 in all on her 2 toes and then a much smaller lesion about 1-2 mm on the sole of the foot near the heel. ASSESSMENT: Plantar warts. PLAN: After some discussion with Cheyenne and discussion of options we elected to use cryotherapy as a conservative means of treatment. I pared the lesions down with a 15-blade and then did 3 cycles of cryotherapy. She understands she needs to followup 3-week intervals until these resolve. If we go more than about 5 or 6 treatments without significant improvement we have to consider alternative treatments. DJS:MEDQ C: CONFIRM #: [id number] OR BOOKKEEPER documented in this encounter Plan of Treatment Not on filedocumented as of this encounter Visit Diagnoses Diagnosis Plantar wart - Primary documented in this encounter Care Teams Mobility Architect Manager Relationship Specialty Start Date End Date Unassigned, Provider PCP - General 05/04/[address] [place] [address] documented as of this encounter
--- OUTSIDE RECORDS SUMMARY | 2022-04-30 10:47 | XMS_ITS | Encounter Summary ---
:1975 Author Organization [facility] Address [address] [place] [address] Care Team Providers Name Role Phone Unassigned, Provider Primary Care Provider Unavailable Reason for Visit Reason Comments AMELIA MORALES Encounter Details Date Type Department Care Team Description 10/08/2011 Office Visit [facility] Jung Lujan Vir al warts, Medicine MD unspecified (Primary [address] Dx) [place] [address] [place], [place] [phone] (Wo rk) Social History Tobacco Use Types Packs/Day Years Used Date Smoking Tobacco: Never Sex Assigned at Date Recorded Not on file documented as of this encounter Last Filed Vital Signs Vital Sign Reading Time Taken Comments Blood Pressure - - Pulse - - Temperature 35.7 ??C (96.3 ??F) 10/08/2011 8:04 AM ORDER CHECKER Respiratory Rate 16 10/08/2011 8:04 AM ORDER CHECKER Oxygen Saturation - - Inhaled Oxygen Concentration - - Weight 62.1 kg (137 lb) 10/08/2011 8:04 AM ORDER CHECKER Height - - Body Mass Index 30.17 06/29/2005 11:42 AM ORDER CHECKER documented in this encounter Progress Notes Jung [...] Primary documented in this encounter Care Teams Aviation Survival Technician Relationship Specialty Start Date End Date Unassigned, Provider PCP - General 05/04/[address] [place] [address] documented as of this encounter
--- OUTSIDE RECORDS SUMMARY | 2022-04-30 10:47 | XMS_ITS | Encounter Summary ---
:1975 [address] [facility] Address [address] [place] [address] Care Team Providers Name Role Phone Unassigned, Provider Primary Care Provider Unavailable Reason for Visit Reason Comments WART Encounter Details Date Type Department Care Team Description 02/25/2012 [facility] Grazyna Cochran Planta r warts Medicine PA-C (Primary Dx) [address] [facility] [address] [place] [address] [place] [address] [phone] (Wo rk) Social History Tobacco Use Types [...] wart documented in this encounter Care Teams Chimney Builder Relationship Specialty Start Date End Date Unassigned, Provider PCP - General 05/04/[address] [place] [address] documented as of this encounter
--- OUTSIDE RECORDS SUMMARY | 2022-04-30 10:47 | XMS_ITS | Encounter Summary ---
:1975 Author Organization [facility] Address [address] [place] [address] Care Team Providers Name Role Phone Unassigned, Provider Primary Care Provider Unavailable Reason for Visit Reason Comments WART Encounter Details Date Type Department Care Team Description 01/28/2012 Office Visit [facility] Grazyna Cochran, Viral warts, Medicine [place] unspecified (Primary [address] [place]) [place] [address] [place] [address] [phone] (Wo rk) Social History Tobacco Use Types Packs/Day Years Used Date Smoking Tobacco: Never Sex Assigned at Date Recorded Not on file documented as of this encounter Last Filed Vital Signs Vital Sign Reading Time Taken Comments Blood Pressure 122/76 01/28/2012 8:06 AM CDT Pulse 64 01/28/2012 8:06 AM CDT Temperature - - Respiratory Rate - - Oxygen Saturation - - Inhaled Oxygen Concentration - - Weight 63.2 kg (139 lb 4 oz) 01/28/2012 8:06 AM CDT Height - - Body Mass Index 30.67 06/29/2005 11:42 AM HL7 DEVELOPER documented in this encounter Progress Notes Grazyna Cochran, FARAZ - 01/28/2012 9:11 AM CDT Procedure Note: Skin Lesion Destruction CHIEF COMPLAINT: Skin wart(s)Past History: Except as noted, past medical history was reviewed and found to be negative. Except as noted, social history was reviewed and found to be negative. Allergies: Patient's allergies were reviewed and updated today in the Allergy section of the electronic medical record. Vital Signs: Vital Signs taken today were reviewed on the flowsheet in Electronic Medical Record. Location #1: Plantar aspect of the first and second toes of the right foot. History: Lesion has been pt. has tried OTC remedies without success. Description: verrucous papule consistent with a benign wart. Number of Lesions Treated @ This Site: 6 Size of largest lesion: 10 mm. ASSESSMENT: Plantar Wart(s) (078.19) PROCEDURE NOTE: Discussed risk of pain, blistering, infection, scarring, hypopigmentation, hyperpigmentation, and recurrence or need for retreatment. Benefits of treatment and alternative treatments were also discussed. Clean technique was used throughout the procedure. Skin was cleaned & prepped with Alcohol. 0.5 ml of mckenna solution was injected subcutaneously into the warts on both toes. Adequate blanching observed. Band-Aid applied to lesion(s). PLAN: [...] in stable condition. Return to clinic in 4 weeks, sooner PRN problems or concerns. *SH~PC~SLD ~[place]and Note completed on: 01/28/2012 9:11 AM documented in this encounter Plan of Treatment Not on filedocumented as of this encounter Visit Diagnoses Diagnosis Viral warts, unspecified - Primary documented in this encounter Care Teams Breaker Oiler Relationship Specialty Start Date End Date Unassigned, Provider PCP - General 05/04/[address] [place] [id number] documented as of this encounter
--- OUTSIDE RECORDS SUMMARY | 2022-04-30 10:47 | XMS_ITS | Encounter Summary ---
:1975 Author Organization [facility] Address [address] [place] [address] Care Team Providers Name Role Phone Unassigned, Provider Primary Care Provider Unavailable Encounter Details Date Type Department Care Team Description 04/11/2008 PN Conversion Only [facility] [address] [address] [place] [address] Social History Tobacco Use Types Packs/Day Years Used Date Smoking Tobacco: Never Assessed Sex Assigned at Date Recorded Not on file documented as of this encounter Plan of Treatment Not on filedocumented as of this encounter Visit Diagnoses Not on filedocumented in this encounter Care Teams Grove Superintendent Relationship Specialty Start Date End Date Unassigned, Provider PCP - General 05/04/00 [address] [place] [address] documented as of this encounter
--- OUTSIDE RECORDS SUMMARY | 2022-04-30 10:47 | XMS_ITS | Encounter Summary ---
:1975 Author Organization [facility] Address [address] [place] [place] [address] Care Team Providers Name Role Phone Unassigned, [...] Department Care Team Description 03/15/2011 Office Visit [facility] Romel Yepez, Unspecified corneal [address] OD ulcer (Primary Dx) [place], [place] [address] Social History Tobacco Use Types [...] Primary documented in this encounter Care Teams Hull Drafter Relationship Specialty Start Date End Date Unassigned, Provider PCP - General 05/04/00 [address] [place] [address] documented as of this encounter
--- OUTSIDE RECORDS SUMMARY | 2022-04-30 10:47 | XMS_ITS | Encounter Summary ---
:1975 Author Organization [facility] Address [address] [place] [address] Care Team Providers Name Role Phone Unassigned, Provider Primary Care Provider Unavailable Encounter Details Date Type Department Care Team Description 02/04/2006 PN Conversion Only [place] Hanh Lisa, [address] [facility] [place] [address] [address] [place] [address] (Wo rk) Social History Tobacco [...] Strep Follow up Culture @ ? Collected: ??[id number] ??[id number] Source: Throat ?Processed: ??[id number] ??[id number] ? 1V Final Report ------ ?[id number] ??[id number] No beta hemolytic Strep group A isolated . @ = Rapid F/U Cult Performed at ??[address] [place], [place] ?[address] Specimen (Source) Anatomical Collection Method Collection Time Re ceived Time Location / / Volume Laterality 02/04/2006 9:55 AM CDT Hanh Galan MD LAB_1 Performing Organization Address City/State/ZIP Code Phon e Number HP CONVERSION documented in this encounter Visit Diagnoses Not on filedocumented in this encounter Care Teams Cable Engineer Relationship Specialty Start Date End Date Unassigned, Provider PCP - General 05/04/00 [address] [place] [address] documented as of this encounter
--- OUTSIDE RECORDS SUMMARY | 2022-04-30 10:47 | XMS_ITS | Encounter Summary ---
:1975 Author Organization [facility] Address [address] [address] Care Team Providers Name Role Phone Unassigned, Provider Primary Care Provider Unavailable Encounter Details Date Type Department Care Team Description 04/11/2008 Office Visit [facility] [place] [address] [address] [place] [address] [place] [address] Social History Tobacco Use Types [...] 0648 Note Time: 04/11/08 0001 Status: Signed Instrumentation And Controls Designer: Ranjeet Jay MD (Physician) NAME: CHEYENNE RASHID MR#: [id number] ACCT: [id number] VISIT: [id number] DICTATING CLINICIAN: RANJEET JAY MD CONFIRM #: [id number] LOC: 520 CLINIC PROGRESS NOTE DATE OF [...] negative. 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 [id number] C: 04/11/08 13:51 CONFIRM #: [id number] documented in this encounter Plan of Treatment Not on filedocumented as of this encounter Visit Diagnoses Not on filedocumented in this encounter Care Teams Oracle Adf Developer Relationship Specialty Start Date End Date Unassigned, Provider PCP - General 05/04/[address] [place] [address] documented as of this encounter
--- OUTSIDE RECORDS SUMMARY | 2022-04-30 10:47 | XMS_ITS | Encounter Summary ---
:1975 Author Organization [facility] Address [address] [address] [facility] [place] [address] Care Team Providers Name Role Phone Unassigned, Provider Primary Care Provider Unavailable Encounter Details Date Type Department Care Team Description 11/29/2005 Office Visit [facility] [place] [place] [address] [place] [address] [place], [place] [phone] (Wo rk) Social History Tobacco Use Types [...] Body Mass Index 28.85 06/29/2005 11:42 AM ARMATURE CONNECTOR documented in this encounter Progress Notes Sherry Joyce MD - 11/29/2005 12:01 AM CDT Progress Notes signed by Sherry Joyce MD at 12/27/052000 Author: Sherry Joyce MD Service: (none) Author Type: Physician Filed: 11/20/10 1145 Note Time: 11/29/05 0001 Status: Signed Utility Tractor Operator: Sherry Joyce MD (Physician) NAME: CHEYENNE RASHID MR: [id number] ACCT: [id number] VISIT: [id number] DICTATING CLINICIAN: SHERRY JOYCE MD JOB: [id number] CLINIC PROGRESS NOTE DATE OF VISIT: 11/29/2005 [...] refill has been done. PLAN: See assessment. [id number] C: 12/01/05 20:19 DOCUMENT: [id number] documented in this encounter Plan of Treatment Not on filedocumented as of this encounter Visit Diagnoses Not on filedocumented in this encounter Care Teams Raw Material Handler Relationship Specialty Start Date End Date Unassigned, Provider PCP - General 05/04/[address] [place] [address] documented as of this encounter
--- OUTSIDE RECORDS SUMMARY | 2022-04-30 10:47 | XMS_ITS | Encounter Summary ---
:1975 Author Organization [facility] Address [address] [place] [address] Care Team Providers Name Role Phone Unassigned, Provider Primary Care Provider Unavailable Reason for Visit Reason Comments AMELIA MORALES Encounter Details Date Type Department Care Team Description 06/16/2012 Office Visit [facility] Grazyna Cochran Planta r warts Medicine PA-C (Primary Dx) [address] [facility] [address] [place] [address] [place] [address] [phone] (Wo rk) Social History Tobacco Use Types Packs/Day Years Used Date Smoking Tobacco: Never Sex Assigned at Date Recorded Not on file documented as of this encounter Last Filed Vital Signs Vital Sign Reading Time Taken Comments Blood Pressure 110/76 06/16/2012 1:25 PM SUSTAINABILITY PURCHASING AGENT Pulse 48 06/16/2012 1:25 PM SUSTAINABILITY PURCHASING AGENT Temperature - - Respiratory Rate - - Oxygen Saturation - - Inhaled Oxygen Concentration - - Weight 63.6 kg (140 lb 3.2 oz) 06/16/2012 1:25 PM SUSTAINABILITY PURCHASING AGENT Height 170.2 cm (5' 7) 06/16/2012 1:25 PM SUSTAINABILITY PURCHASING AGENT Body Mass Index 21.96 06/16/2012 1:25 PM SUSTAINABILITY PURCHASING AGENT documented in this encounter Progress Notes Grazyna [...] wart documented in this encounter Care Teams Surface Supply Breathing Apparatus Relationship Specialty Start Date End Date Unassigned, Provider PCP - General 05/04/[address] [place] [address] documented as of this encounter
--- OUTSIDE RECORDS SUMMARY | 2022-04-30 10:47 | XMS_ITS | Encounter Summary ---
:1975 [facility] Address [address], [place] [address] Care Team Providers Name Role Phone Unassigned, Provider Primary Care Provider Unavailable Encounter Details Date Type Department Care Team Description 09/15/2005 Office Visit [facility] [place] [address] [place] [address] [place] [address] Social History Tobacco Use Types Packs/Day Years Used Date Smoking Tobacco: Never Assessed Sex Assigned at Date Recorded Not on file documented as of this encounter Last Filed Vital Signs Vital Sign Reading Time Taken Comments Blood Pressure 154/94 09/15/2005 11:50 AM EMPLOYEE BENEFITS MANAGER Pulse 61 09/15/2005 11:50 AM EMPLOYEE BENEFITS MANAGER Temperature 36.4 ??C (97.5 ??F) 09/15/2005 11:50 AM EMPLOYEE BENEFITS MANAGER C: 3 6.4 C Respiratory Rate 16 09/15/2005 11:50 AM EMPLOYEE BENEFITS MANAGER Oxygen Saturation - - Inhaled Oxygen Concentration - - Weight - - Height - - Body Mass Index - - documented in this encounter Progress Notes Ranjeet Jay MD - 09/15/2005 12:01 AM CST Progress Notes signed by Ranjeet Jay MD at 10/12/05 2214 Author: Ranjeet Jay MD Service: (none) Author Type: Physician Filed: 11/20/10 1013 Note Time: 09/15/05 0001 Status: Signed Hand Paster: Ranjeet Jay MD (Physician) NAME: CHEYENNE RASHID MR: [id number] ACCT: [id number] VISIT: [id number] DICTATING CLINICIAN: RANJEET JAY MD JOB: [id number] CLINIC PROGRESS NOTE DATE OF VISIT: 09/15/2005 SUBJECTIVE: The patient's had left ear discomfort for two days, but off and on has had a cold for three weeks with secondly coughing up and thirdly blowing out of her nose some yellow and green mucous. Fourth, we talked about her blood pressure reading which is up today. She denies taking [id number] medicines and is nursing a 7-month-old. She [...] blood pressure, which she agrees to do. [id number] C: 09/16/05 09:08 DOCUMENT: [id number] OYEE BENEFITS MANAGER documented in this encounter Plan of Treatment Not on filedocumented as of this encounter Visit Diagnoses Not on filedocumented in this encounter Care Teams Dairy Equipment Repairer Relationship Specialty Start Date End Date Unassigned, Provider PCP - General 05/04/[address] [place] [address] documented as of this encounter
--- OUTSIDE RECORDS SUMMARY | 2022-04-30 10:47 | XMS_ITS | Encounter Summary ---
:1975 Author Organization [facility] Address [address] [place] [address] Care Team Providers Name Role Phone Unassigned, Provider Primary Care Provider Unavailable Reason for Visit Reason Comments AMELIA MORALES Encounter Details Date Type Department Care Team Description 05/05/2012 Office Visit [facility] Grazyna Cochran Planta r warts Medicine FARAZ (Primary Dx) [address] [facility] [address] [place] [address] [place] [address] [phone] (Wo rk) Social History Tobacco Use Types [...] documented in this encounter Progress Notes Grazyna Ccohran PA-C - 05/05/2012 11:29 AM CDT Procedure [...] wart documented in this encounter Care Teams Optical Instrument Specialist Relationship Specialty Start Date End Date Unassigned, Provider PCP - General 05/04/[address] [place] [address] documented as of this encounter
--- OUTSIDE RECORDS SUMMARY | 2022-04-30 10:47 | XMS_ITS | Encounter Summary ---
:1975 Author [facility] Address [address] [facility] [place] [address] Care Team Providers Name Role Phone Unassigned, [...] on filedocumented in this encounter Care Teams Food And Beverage Intern Relationship Specialty Start Date End Date Unassigned, Provider PCP - General 05/04/[address] [place] [address] documented as of this encounter
== END 2022-04-27 21:40 | disposition home or self-care (01) ==
PROVIDERS: Emergency Provider Emergency Medicine Emergency Medical Services
DX: S90.112A Contusion of left great toe without damage to nail, initial encounter (principal); W20.8XXA Other cause of strike by thrown, projected or falling object, initial encounter
CPT/HCPCS: 73660; 99283